=== PATIENT | male | born 1960 | race African-American/Black ===

== ENCOUNTER 2017-03-18 12:06 | Observation (INO) | payer MEDICAID, SELFPAY ==
[2017-03-18 12:17] VITALS: BMI 37.7; BMI 37.8
[2017-03-18 12:18] VITALS: BP 116/86; PULSE 74; PULSE 79; RESP 18; TEMP 36.6; O2SAT 96
--- NOTE | 2017-03-18 12:21 | PCM.HP.STD ---
Problem List (1) Opioid withdrawal Status: Acute (2) Hepatitis C Status: Chronic (3) History of heroin abuse Status: Chronic (4) Hypertension Status: Chronic History of Present Illness Date of Admission: 03/18/17 Chief Complaint: Abdominal cramps The patient is a 56 year old M past medical history is gone for hep C, heroine dependence with previous 7 previous detox with last one being in September with a [facility] relapsed a few weeks after. Patient presents with abdominal cramps as well as leg pain. He admits to daily use of IV heroine. His admission assessment was consistent with acute opioid withdrawal. Admitted to regular nursing floor for medical stabilization using Subutex. Past Medical History Past Medical History (Chronic Problems): Chronic Problems Hepatitis C (Chronic) History of heroin abuse (Chronic) Hypertension (Chronic) Allergies No Known Allergies Allergy (Verified 11/20/15 11:51) Surgical History: cholecystectomy Psychiatric History: No pertinent psych hx Smoking Status: Current every day smoker - *Family History Maternal History Items: No pertinent history Paternal History Items: No pertinent history Review of Systems Constitutional: Denies: Anorexia, Chills, Fever HEENT: Denies: Head Aches, Sinus Congestion, Sinus Drainage Cardiovascular: Denies: Chest Pain, Orthopnea, Palpitations Respiratory: Denies: Cough, Shortness of breath at rest, Shortness of breath upon exertion, Sputum production Gastrointestinal: Reports: Abdominal Pain. Denies: Hematemesis, Hematochezia Genitourinary: Denies: Dysuria, Frequency, Hematuria, Urgency Musculoskeletal: Reports: Joint Pain, Muscle pain Skin: Denies: Rash Neurological: Denies: Focal weakness, Numbness Psychiatric: Denies: Suicidal Ideations Hematologic/ Lymphatic: Denies: Easy Bruising, Easy Bleeding VTE Information - Inpt Only VTE Present on Admission: No VTE Mechan Device Prophylaxis: Knee High NEENA Hose VTE Pharm Prophylaxis ordered?: Yes Objective: GENERAL: Flat affect HEENT: Clear conjunctiva, NECK; supple, normal thyroid, CHEST: Diminished to auscultation bilaterally, HEART: Regular S1 S2, no audible murmurs ABDOMEN: soft, non-tender, normoactive bowel sounds, RECTAL: deferred EXTREMITIES: No edema, no clubbing, no cyanosis. 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 SKIN: No erythema, - Physical Exam Vital Signs Temp Pulse Resp BP Pulse Ox 97.9 F 79 18 116/86 96 03/18/17 12:18 03/18/17 12:18 03/18/17 12:18 03/18/17 12:18 03/18/17 12:18 Oxygen Delivery Method Room Air Assessment/Plan Patient is a 56-year-old gentleman with history of heroine dependence presented with acute opiate withdrawal 1. Acute opioid withdrawal and admitted to a regular nursing floor managed with a [facility] medical stabilization protocol using Subutex. She was counseled on cessation regarding his opioid dependence 2. Essential Hypertension-blood pressure controlled, home medications continued with dose adjustment as needed 3. History of hep C 4. Tobacco dependence counseled on cessation, offered nicotine patch for tobacco cravings 5. DVT prophylaxis; Lovenox
[2017-03-18] MEDS: Buprenorphine HCl 2 MG TAB.SUBL SL ×2 (12:47→22:52)
[2017-03-18] MEDS: cloNIDine HCl 0.1 MG Tablet 0.2 MG PO (12:48)
[2017-03-18] MEDS: Dicyclomine 10 MG Capsule 20 MG PO ×2 (12:48→22:52)
[2017-03-18 12:49] LABS: Absolute Lymphocyte Count 2.78 X10^3/ul (0.83-4.51); Absolute Neutrophil Count 3.4 X10^3/uL (2.0-7.7); Basophil# 0.02 X10^3/uL; Basophil% 0.3 % (0-1); Eosinophil# 0.18 X10^3/uL; Eosinophils% 2.6 % (0-5); Hematocrit 40.9 % (40-54); Hemoglobin 14.1 g/dl (13.0-16.5); Lymphocyte # 2.78 X10^3/ul (4.0); Lymphocyte % 39.9 % (19-41); Mean Corp Hgb Conc 34.5 g/gl (32-36); Mean Corpuscular Hgb 33.1 pg (27.0-32.0); Mean Platelet Vol. 9.7 fl (6.2-12.0); Monocyte# 0.57 X10^3/uL; Monocyte% 8.2 % (0-10); Neutrophil # 3.41 X10^3/uL (2.7-7.7); Neutrophil % 48.9 % (47-70); Platelet Count 210 K/mm3 (150-450); RBC Distribution Width SD 41.9 fl (35.1-43.9); Red Blood Count 4.26 M/mm3 (4.6-6.2)
[2017-03-18] MEDS: Methocarbamol 750 MG Tablet PO (12:49)
[2017-03-18] MEDS: Ondansetron ODT 4 MG Tablet PO (12:49)
[2017-03-18 12:51] LABS: POSITIVE COUNT NO; POSITIVE DIFFERENTIAL NO; POSITIVE MORPHOLOGY NO
[2017-03-18] MEDS: chlordiazePOXIDE 25 MG Capsule PO ×3 (12:53→22:52)
[2017-03-18 13:00] LABS: International Normalized Ratio 1.1; Prothrombin Time (Protime)PT. 13.3 SECONDS (11.7-14.9)
[2017-03-18 13:04] LABS: ALB/GLOB Ratio 0.6 RATIO (0.9-2.4); AST(SGOT) 38 U/L (15-37); Alanine Aminotransfer ALT/SGPT 40 U/L (12-78); Alkaline Phosphatase 141 U/L (45-117); Amylase 49 U/L (25-115); Anion Gap 7 (5-15); BUN 10 mg/dL (7-18); BUN/Creat Ratio 11.7 RATIO (10-20); Calcium,Total 8.4 mg/dL (8.5-10.1); Chloride 107 mmol/L (98-107); Creatinine, Serum 0.86 mg/dL (0.70-1.30); EST Glomerular Filtration Rate 98 mL/min (>60); Est Glom Filt Rate - Afr Amer 119 mL/min (>60); Estimated Creatinine Clearance 114.63 ml/min; Globulin 5.2 g/dL (2.3-3.5); Glucose 83 mg/dL (70-110); Lipase 69 U/L (73-393); Potassium 3.9 mmol/L (3.5-5.1); Protein, Total 8.2 g/dL (6.4-8.2); Sodium Level 137 mmol/L (136-145)
[2017-03-18 15:39] VITALS: BP 126/72; PULSE 61; RESP 18; TEMP 36.6
[2017-03-18 15:49] LABS: Bacteria 0 SEEN /hpf (None Seen); Mucous, Urine 0 SEEN /hpf (<or=2+); Red Blood Cells-Urine 0 SEEN /hpf (0-5); White Blood Cells 0 SEEN /hpf (0-5)
[2017-03-18 15:58] LABS: Color, Urine Yellow (Yellow); Glucose, Dipstick Normal (Normal); Ketone-Dipstick Negative (Negative); Leukocyte Esterase-Dipstick 25 /ul (Negative); Nitrite-Dipstick Negative (Negative); Occult Blood-Urine Negative /ul (Negative); Protein-Dipstick Negative (Negative); Specific Gravity, Urine 1.015 (1.002-1.030); Urine Bilirubin Dipstick Negative (Negative); Urine Clarity Clear (Clear); Urine Urobilinogen 4 mg/dl (Normal)
[2017-03-18 16:05] LABS: Amphetamine Urine VISTA NEGATIVE (<1000 ng/mL); Barbiturate Urine VISTA NEGATIVE (< 200 ng/mL); Benzodiazepine Urine VISTA NEGATIVE (< 200 ng/mL); Cocaine Urine VISTA POSITIVE (< 300 ng/mL); Ecstacy Urine VISTA NEGATIVE (< 500 ng/mL); Methadone Urine VISTA NEGATIVE (< 300 ng/mL); PCP Urine VISTA NEGATIVE (< 25 ng/mL); THC Urine VISTA NEGATIVE (< 50 ng/mL); Vista UDS pH Range 6
[2017-03-18 16:07] LABS: Squamous Epithelial Cells - UA 0-5 SEEN /hpf (0-5)
[2017-03-18] MEDS: cloNIDine HCl 0.1 MG Tablet PO (22:52)
[2017-03-18] MEDS: traZODone 50 MG Tablet PO (22:56)
[2017-03-18 23:08] VITALS: BP 120/72; PULSE 62; RESP 18; TEMP 36.5
[2017-03-19 02:17] VITALS: BP 132/69; PULSE 55; RESP 20; TEMP 36.6
[2017-03-19] MEDS: chlordiazePOXIDE 25 MG Capsule PO ×4 (02:17→18:23)
[2017-03-19] MEDS: QUEtiapine 25 MG Tablet PO ×2 (02:25→22:12)
[2017-03-19] MEDS: Buprenorphine HCl 2 MG TAB.SUBL SL ×3 (07:08→22:12)
[2017-03-19 07:10] VITALS: BP 125/79; PULSE 64; RESP 16; TEMP 36.1
--- NOTE | 2017-03-19 08:31 | PN_ITS ---
Subjective: Patient was admitted with acute opioid withdrawal admitted to regular nursing floor being with Subutex medical stabilization protocol Objective: GENERAL: Flat affect HEENT: Clear conjunctiva, NECK; supple, normal thyroid, CHEST: Diminished to auscultation bilaterally, HEART: Regular S1 S2, no audible murmurs ABDOMEN: soft, non-tender, normoactive bowel sounds, RECTAL: deferred EXTREMITIES: No edema, no clubbing, no cyanosis. 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 SKIN: No erythema, Vitals/I&O's: Vital Signs Temp Pulse Resp BP Pulse Ox 96.9 F 64 16 125/79 96 03/19/17 07:10 03/19/17 07:10 03/19/17 07:10 03/19/17 07:10 03/18/17 12:18 Oxygen Delivery Method Room Air Weight: 137 kg Body Mass Index (BMI) 37.7 Intake and Output for Last 24 Hours 03/17/17 03/18/17 03/19/17 23:59 23:59 23:59 Intake Total 360 840 Output Total 150 Balance 210 840 Laboratory Results 03/18/17 12:35: WBC 7.0, RBC 4.26 L, Hgb 14.1, Hct 40.9, MCV 96.0 H, MCH 33.1 H , MCHC 34.5, RDW 12.0, RDW Differential 41.9, Plt Count 210, MPV 9.7, Immature Gran % (Auto) 0.100, Neut % (Auto) 48.9, Lymph % (Auto) 39.9, [place]ton % (Auto) 8.2 , Eos % (Auto) 2.6, Baso % (Auto) 0.3, Absolute Neuts (auto) 3.4, Absolute Lymphs (auto) 2.78, Total Counted Not Reportable 03/18/17 12:35: PT 13.3, INR 1.1 03/18/17 12:35: Sodium 137, Potassium 3.9, Chloride 107, Carbon Dioxide 23.0, Anion Gap 7, BUN 10, Creatinine 0.86, Estim Creat Clear Calc 114.63, Est GFR ( MDRD) Af Amer 119, Est GFR (MDRD) Non-Af 98, BUN/Creatinine Ratio 11.7, Glucose 83, Calcium 8.4 L, Total Bilirubin 0.60, AST 38 H, ALT 40, Alkaline Phosphatase 141 H, Total Protein 8.2, Albumin 3.0 L, Globulin 5.2 H, Albumin/Globulin Ratio 0.6 L, Amylase 49, Lipase 69 L 03/18/17 12:35: Ethyl Alcohol 4.0 03/18/17 15:40: Urine Opiates Screen POSITIVE H, Urine Methadone Screen NEGATIVE , Ur Barbiturates Screen NEGATIVE, Ur Phencyclidine Scrn NEGATIVE, Ur Amphetamines Screen NEGATIVE, U Methamphetamin-MDMA NEGATIVE, U Benzodiazepines Scrn NEGATIVE, Urine Cocaine Screen POSITIVE H, U Cannabinoids Screen NEGATIVE, Ur Drug Screen Comment 03/18/17 15:40: Urine Color Yellow, Urine Clarity Clear, Urine pH 6.0, Ur Specific [place] 1.015, Urine Protein Negative, Urine Glucose (UA) Normal, Urine Ketones Negative, Urine Occult Blood Negative, Urine Nitrite Negative, Urine Bilirubin Negative, Urine Urobilinogen 4 H, Ur Leukocyte Esterase 25 H, Urine RBC 0 SEEN, Urine WBC 0 SEEN, Ur Squamous Epith Cells 0-5 SEEN, Urine Bacteria 0 SEEN, Urine Mucus 0 SEEN Current Medications Acetaminophen (Tylenol) 650 mg PO Q4H PRN PRN PRN Reason: Temp>99.1F Al Hydroxide/Mg Hydroxide (Mylanta Ii) 30 ml PO Q6H PRN PRN PRN Reason: dyspesia Bisacodyl (Dulcolax) 10 mg RECTAL DAILY PRN PRN Reason: Constipation Buprenorphine HCl (Buprenorphine Hcl) 4 mg SL Q8H VALENTIN PRN Reason: Taper Stop: 03/21/17 17:59 Last Admin: 03/19/17 07:08 Dose: 4 mg Carbidopa/Levodopa (Sinemet) 1 tablet PO Q8H PRN PRN PRN Reason: RESTLESSNESS Chlordiazepoxide (Librium) 25 mg PO Q4 VALENTIN Stop: 03/19/17 10:01 Last Admin: 03/19/17 07:09 Dose: 25 mg Chlordiazepoxide (Librium) 25 mg PO Q6H PRN PRN PRN Reason: Mod-Sev Anxiety (score 2-3/3) Clonidine (Catapres) 0.1 mg PO Q2H PRN PRN Reason: Hot/Cold Sweats or Anxiety Last Admin: 03/18/17 22:52 Dose: 0.1 mg Dicyclomine HCl (Bentyl) 20 mg PO Q6H PRN PRN PRN Reason: Abdomnial Discomfort Last Admin: 03/18/17 22:52 Dose: 20 mg Enoxaparin Sodium (Lovenox) 40 mg SC DAILY@1000 [facility] Folic Acid (Folic Acid) 1 mg PO DAILY@0800 [facility] Hydroxyzine Pamoate (Vistaril) 50 mg PO Q6H PRN PRN PRN Reason: Mild Anxiety (score 1/3) Ibuprofen (Motrin) 800 mg PO Q8H PRN PRN PRN Reason: Mild-Moderate Pain (1-5/10) Loperamide HCl (Imodium) 2 - 4 mg PO UD PRN PRN Reason: LOOSE STOOLS Methocarbamol (Methocarbamol) 750 mg PO 4X/DAY PRN PRN Reason: Muscle Aches Last Admin: 03/18/17 12:49 Dose: 750 mg Multivitamins/Minerals (Multivitamin With Minerals) [facility] Nicotine (Nicoderm Cq (Pbkc)) 21 mg TRANSDERM. DAILY [facility] Nutritional Formula (Lactose Free) (Ensure Enlive) 120 ml PO 4X/DAY [facility] Last Admin: 03/18/17 22:56 Dose: 120 ml Ondansetron HCl (Zofran Odt) 4 mg PO Q6H PRN PRN PRN Reason: NAUSEA Last Admin: 03/18/17 12:49 Dose: 4 mg Quetiapine Fumarate (Seroquel) 25 mg PO Q6H PRN PRN PRN Reason: Moderate Anxiety (score 2/3) Last Admin: 03/19/17 02:25 Dose: 25 mg Senna (Senokot) 1 tablet PO QHS PRN PRN Reason: Constipation Thiamine HCl (Vitamin B1) 100 mg PO DAILYCM [facility] Trazodone HCl (Desyrel) 50 mg PO QHS [facility] Last Admin: 03/18/17 22:56 Dose: 50 mg Assessment/Plan Patient is a 56-year-old gentleman with history of heroine dependence presented with acute opiate withdrawal 1. Acute opioid withdrawal and admitted to a regular nursing floor managed with a [facility] medical stabilization protocol using Subutex. She was counseled on cessation regarding his opioid dependence 2. Essential Hypertension-blood pressure controlled, home medications continued with dose adjustment as needed 3. History of hep C 4. Tobacco dependence counseled on cessation, offered nicotine patch for tobacco cravings 5. DVT prophylaxis; Lovenox
[2017-03-19] MEDS: Multivitamins,Ther W-Minerals Tablet 1 TABLET PO (10:13)
[2017-03-19] MEDS: Folic Acid 1 MG Tablet PO (10:14)
[2017-03-19] MEDS: Thiamine Hydrochloride 100 MG Tablet PO (10:14)
[2017-03-19 11:59] VITALS: BP 118/75; PULSE 56; RESP 16; TEMP 36.8
[2017-03-19 18:00] VITALS: BP 148/74; PULSE 92; RESP 20; TEMP 37
[2017-03-19] MEDS: Ondansetron ODT 4 MG Tablet PO (18:22)
[2017-03-19] MEDS: cloNIDine HCl 0.1 MG Tablet PO (20:41)
[2017-03-19] MEDS: Dicyclomine 10 MG Capsule 20 MG PO (20:41)
[2017-03-19] MEDS: Carbidopa/Levodopa 25/100 Tablet PO (20:41)
[2017-03-19 22:00] VITALS: BP 163/87; PULSE 67; RESP 20; TEMP 36.9
[2017-03-19] MEDS: traZODone 50 MG Tablet PO (22:12)
[2017-03-20 06:00] VITALS: BP 124/64; PULSE 61; RESP 18; TEMP 36.7
[2017-03-20] MEDS: Buprenorphine HCl 2 MG TAB.SUBL SL ×2 (06:06→18:11)
--- NOTE | 2017-03-20 09:36 | PN_ITS ---
Subjective: Patient seen had a relatively uneventful night. Objective: GENERAL: Flat affect HEENT: Clear conjunctiva, NECK; supple, normal thyroid, CHEST: Diminished to auscultation bilaterally, HEART: Regular S1 S2, no audible murmurs ABDOMEN: soft, non-tender, normoactive bowel sounds, RECTAL: deferred EXTREMITIES: No edema, no clubbing, no cyanosis. 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 SKIN: No erythema, Vitals/I&O's: Vital Signs Temp Pulse Resp BP Pulse Ox 98.0 F 61 18 124/64 96 03/20/17 06:00 03/20/17 06:00 03/20/17 06:00 03/20/17 06:00 03/18/17 12:18 Oxygen Delivery Method Room Air Weight: 137 kg Body Mass Index (BMI) 37.7 Intake and Output for Last 24 Hours 03/18/17 03/19/17 03/20/17 23:59 23:59 23:59 Intake Total 360 1440 Output Total 150 Balance 210 1440 Current Medications Acetaminophen (Tylenol) 650 mg PO Q4H PRN PRN PRN Reason: Temp>99.1F Al Hydroxide/Mg Hydroxide (Mylanta Ii) 30 ml PO Q6H PRN PRN PRN Reason: dyspesia Bisacodyl (Dulcolax) 10 mg RECTAL DAILY PRN PRN Reason: Constipation Buprenorphine HCl (Buprenorphine Hcl) 2 mg SL Q12H VALENTIN PRN Reason: Taper Stop: 03/21/17 17:59 Last Admin: 03/20/17 06:06 Dose: 2 mg Carbidopa/Levodopa (Sinemet) 1 tablet PO Q8H PRN PRN PRN Reason: RESTLESSNESS Last Admin: 03/19/17 20:41 Dose: 1 tablet Chlordiazepoxide (Librium) 25 mg PO Q6H PRN PRN PRN Reason: Mod-Sev Anxiety (score 2-3/3) Last Admin: 03/19/17 18:23 Dose: 25 mg Clonidine (Catapres) 0.1 mg PO Q2H PRN PRN Reason: Hot/Cold Sweats or Anxiety Last Admin: 03/19/17 20:41 Dose: 0.1 mg Dicyclomine HCl (Bentyl) 20 mg PO Q6H PRN PRN PRN Reason: Abdomnial Discomfort Last Admin: 03/19/17 20:41 Dose: 20 mg Enoxaparin Sodium (Lovenox) 40 mg SC DAILY@1000 [facility] Last Admin: 03/19/17 10:12 Dose: Not Given Folic Acid (Folic Acid) 1 mg PO DAILY@0800 [facility] Last Admin: 03/19/17 10:14 Dose: 1 mg Hydroxyzine Pamoate (Vistaril) 50 mg PO Q6H PRN PRN PRN Reason: Mild Anxiety (score 1/3) Last Admin: 03/19/17 20:41 Dose: 50 mg Ibuprofen (Motrin) 800 mg PO Q8H PRN PRN PRN Reason: Mild-Moderate Pain (1-5/10) Loperamide HCl (Imodium) 2 - 4 mg PO UD PRN PRN Reason: LOOSE STOOLS Methocarbamol (Methocarbamol) 750 mg PO 4X/DAY PRN PRN Reason: Muscle Aches Last Admin: 03/18/17 12:49 Dose: 750 mg Multivitamins/Minerals ([facility]ivitamin With Minerals) [facility] Last Admin: 03/19/17 10:13 Dose: 1 tablet Nicotine (Nicoderm Cq (Pbkc)) 21 mg TRANSDERM. DAILY [facility] Last Admin: 03/19/17 10:13 Dose: 21 mg Nutritional Formula (Lactose Free) (Ensure Enlive) 120 ml PO 4X/DAY [facility] Last Admin: 03/19/17 22:12 Dose: 120 ml Ondansetron HCl (Zofran Odt) 4 mg PO Q6H PRN PRN PRN Reason: NAUSEA Last Admin: 03/19/17 18:22 Dose: 4 mg Quetiapine Fumarate (Seroquel) 25 mg PO Q6H PRN PRN PRN Reason: Moderate Anxiety (score 2/3) Last Admin: 03/19/17 22:12 Dose: 25 mg Senna (Senokot) 1 tablet PO QHS PRN PRN Reason: Constipation Thiamine HCl ([facility]itamin B[facility]) [facility] Last Admin: 03/19/17 10:14 Dose: 100 mg Trazodone HCl (Desyrel) 50 mg PO QHS [facility] Last Admin: 03/19/17 22:12 Dose: 50 mg Assessment/Plan Patient is a 56-year-old gentleman with history of heroine dependence presented with acute opiate withdrawal 1. Acute opioid withdrawal and admitted to a regular nursing floor managed with a [facility] medical stabilization protocol using Subutex. She was counseled on cessation regarding his opioid dependence 2. Essential Hypertension-blood pressure controlled, home medications continued with dose adjustment as needed 3. History of hep C 4. Tobacco dependence counseled on cessation, offered nicotine patch for tobacco cravings 5. DVT prophylaxis; Lovenox
[2017-03-20 10:45] VITALS: BP 137/83; PULSE 64; RESP 16; TEMP 36.6
[2017-03-20] MEDS: Thiamine Hydrochloride 100 MG Tablet PO (10:50)
[2017-03-20] MEDS: QUEtiapine 25 MG Tablet PO ×2 (10:50→18:15)
[2017-03-20] MEDS: cloNIDine HCl 0.1 MG Tablet PO ×3 (10:50→21:25)
[2017-03-20] MEDS: Folic Acid 1 MG Tablet PO (10:51)
[2017-03-20] MEDS: Multivitamins,Ther W-Minerals Tablet 1 TABLET PO (10:51)
[2017-03-20 15:15] VITALS: BP 152/88; PULSE 70; RESP 18; TEMP 36.7
[2017-03-20] MEDS: chlordiazePOXIDE 25 MG Capsule PO ×2 (15:19→21:25)
[2017-03-20] MEDS: Carbidopa/Levodopa 25/100 Tablet PO (15:19)
[2017-03-20] MEDS: Ibuprofen 400 MG Tablet 800 MG PO (18:15)
[2017-03-20] MEDS: Ondansetron ODT 4 MG Tablet PO (18:15)
[2017-03-20 18:18] VITALS: BP 138/80; PULSE 74; RESP 18; TEMP 36.5
[2017-03-20 21:14] VITALS: BP 158/92; PULSE 71; RESP 100; TEMP 36.8
[2017-03-20] MEDS: traZODone 50 MG Tablet PO (21:25)
[2017-03-20] MEDS: Methocarbamol 750 MG Tablet PO (21:25)
[2017-03-21] MEDS: Buprenorphine HCl 2 MG TAB.SUBL SL (05:21)
[2017-03-21 05:22] VITALS: BP 147/93; PULSE 59; RESP 16; TEMP 36.4
--- NOTE | 2017-03-21 08:28 | PCM.DC ---
You will use the following diet at home:: No restrictions Discharge Activity: May not drive while taking narcotic pain medications. Allergies/Adverse Reactions: Allergies No Known Allergies Allergy (Verified 11/20/15 11:51) Medications to take at Discharge HydrOXYzine ALAINA [Vistaril] 50 mg PO Q6H PRN PRN #30 capsule 03/21/17 The following prescriptions were given: HydrOXYzine ALAINA [Vistaril] 50 mg PO Q6H PRN PRN #30 capsule PRN Reason: Mild Anxiety (score 1/3) Primary Care Physician: Devin Orozco III, MD [Primary Care Provider] - Please follow up with your Primary Care Physician in: in 1-2 weeks Proposed Discharge Date: 03/21/17
--- NOTE | 2017-03-21 08:34 | PCM.DC.SUM ---
Discharge Date and Diagnosis Date of Admission: 03/18/17 Date of Discharge: 03/21/17 - Primary Discharge Diagnosis Acute opioid withdrawal - Secondary Discharge Diagnosis Chronic Problems Hepatitis C (Chronic) History of heroin abuse (Chronic) Hypertension (Chronic) Hospital Course and Treatment Operations: None Summary of Care Provided: Patient is a 56-year-old gentleman with history of heroine dependence presented with acute opiate withdrawal 1. Acute opioid withdrawal and admitted to a regular nursing floor managed with a [facility] medical stabilization protocol using Subutex. He was counseled on cessation regarding his opioid dependence the patient was discharged on hydroxyzine 50 mg as needed for anxiety given a prescription for 30 tablets 2. Essential Hypertension-blood pressure controlled, home medications continued with dose adjustment as needed 3. History of hep C 4. Tobacco dependence counseled on cessation, offered nicotine patch for tobacco cravings 5. DVT prophylaxis; Lovenox Discharge Diet: No Restrictions Discharge Activity: May not drive while taking narcotic pain medications. Home Medications: Medications to take at Discharge HydrOXYzine ALAINA [Vistaril] 50 mg PO Q6H PRN PRN #30 capsule 03/21/17 Following Prescrptions Were Given to Patient: HydrOXYzine ALAINA [Vistaril] 50 mg PO Q6H PRN PRN #30 capsule PRN Reason: Mild Anxiety (score 1/3) Primary Care Physician: Devin Orozco III, MD [Primary Care Provider] - Please follow up with your Primary Care Physician in: in 1-2 weeks Disposition: Home Minutes spent on discharge:: 35 Patient Condition:: Stable Meaningful Use Info Meaningful Use Diagnoses (Choose all that apply): None applicable
[2017-03-21 08:55] VITALS: BP 145/87; PULSE 65; RESP 16; TEMP 36.5
[2017-03-21] MEDS: Folic Acid 1 MG Tablet PO (08:59)
[2017-03-21] MEDS: Multivitamins,Ther W-Minerals Tablet 1 TABLET PO (08:59)
[2017-03-21] MEDS: Thiamine Hydrochloride 100 MG Tablet PO (08:59)
== END 2017-03-21 10:11 | disposition home or self-care (01) | DRG 773 ==
LOC: MS2 08-14 15:06
PROVIDERS: Admitting Provider Internal Medicine; Family Provider Family Medicine; PCP Family Medicine; Visit Provider Internal Medicine
DX: F11.23 Opioid dependence with withdrawal (principal); I10 Essential (primary) hypertension; F17.200 Nicotine dependence, unspecified, uncomplicated; B18.2 Chronic viral hepatitis C
CPT/HCPCS: 80053; 80307; 80320; 81001; 82150; 83690; 85025; 85610; 97802; 99218; 99406; G0378; G0379; G0480

== ENCOUNTER 2018-02-08 06:51 | Inpatient (IN) | payer MEDICAID, SELFPAY ==
[2018-02-08] VITALS (12 sets, daily range): BP systolic 102–170; BP diastolic 55–97; PULSE 62–107; RESP 14–28; TEMP 36.9–39.2; O2SAT 95–98; BMI 37.5
--- NOTE | 2018-02-08 07:30 | CT_ITS ---
STUDY: CT ABDOMEN AND PELVIS WITHOUT CONTRAST REASON FOR EXAM: Male, 57 years old. Left abdominal pain. Fever RADIATION DOSAGE (If Supplied By Facility): CTDIvol = ( 23.58 ) mGy, DLP = ( 1355.13 ) mGycm TECHNIQUE: Transaxial images were obtained from the dome of the diaphragm to the symphysis pubis without oral contrast, and without intravenous contrast. Sagittal and coronal images were reconstructed. Individualized dose optimization techniques were used for this CT. COMPARISON: July 09, 2017. FINDINGS: The visualized lung bases are unremarkable. The visualized portions of the heart are within normal limits. There is hepatomegaly with diffuse hepatic enlargement. There are surgical clips in the gallbladder fossa consistent with a prior cholecystectomy. There is mild splenomegaly. Normal pancreas. Normal bilateral adrenal glands. There is 2.0 cm cyst of the right kidney. Normal left kidney. No stones or hydronephrosis. Normal visualized stomach. Normal small intestine. Normal colon. There is moderate stool. The appendix is visualized and appears normal. There is atherosclerotic calcification of the abdominal aorta, without a demonstrated aneurysm. Normal inferior vena cava. Normal retroperitoneum. Normal urinary bladder. There is no free fluid in the abdomen or pelvis. There is a small umbilical hernia containing fat. Normal osseous structures. CT/Abdomen/Pelvis without Cont IMPRESSION: Hepatosplenomegaly. Prior cholecystectomy. No acute intra-abdominal abnormality. Electronically Signed: Igor Welch MD at 8:18 EDT , Service support ,
--- NOTE | 2018-02-08 07:30 | EKG12_ITS ---
Test Reason : SOB Blood Pressure : / mmHG Vent. Rate : 101 BPM Atrial Rate : 101 BPM P-R Int : 120 ms QRS Dur : 070 ms QT Int : 330 ms P-R-T Axes : 056 036 003 degrees QTc Int : 427 ms Sinus tachycardia with Premature atrial complexes in a pattern of bigeminy Nonspecific ST and T wave abnormality Abnormal ECG Confirmed by KAYDEN PAGAN, AVINASH ([id number]), photograph editor JOSHUA PIÑA ([id number]) on 02/11/2018 10:34:58 AM Referred By: Confirmed By:AVINASH MONIQUE MD
[2018-02-08] MEDS: morphine 8 MG/ML Syringe IV ×2 (07:36→10:44)
[2018-02-08] MEDS: 0.9% Normal Saline 1,000 ML 1000 ML IV (07:36)
[2018-02-08] MEDS: Ondansetron 4 MG/2 ML Vial IV (07:37)
[2018-02-08 07:40] LABS: Absolute Lymphocyte Count 2.42 X10^3/ul (0.83-4.51); Absolute Neutrophil Count 13.4 X10^3/uL (2.0-7.7); Basophil# 0.02 X10^3/uL; Basophil% 0.1 % (0-1); Eosinophil# 0.06 X10^3/uL; Eosinophils% 0.4 % (0-5); Hemoglobin 14.7 g/dl (13.0-16.5); Lymphocyte # 2.42 X10^3/ul (4.0); Lymphocyte % 14.3 % (19-41); Mean Corp Hgb Conc 34.2 g/gl (32-36); Mean Corpuscular Volume 96.6 fL (80-94); Mean Platelet Vol. 10.1 fl (6.2-12.0); Monocyte# 0.98 X10^3/uL; Monocyte% 5.8 % (0-10); Neutrophil # 13.43 X10^3/uL (2.7-7.7); Neutrophil % 79.2 % (47-70); POSITIVE COUNT NO; POSITIVE DIFFERENTIAL NO; POSITIVE MORPHOLOGY NO; Platelet Count 231 K/mm3 (150-450); RBC Distribution Width CV 12.1 % (11.6-14.6); RBC Distribution Width SD 43.1 fl (35.1-43.9); Red Blood Count 4.45 M/mm3 (4.6-6.2)
--- NOTE | 2018-02-08 07:41 | ED.DCSUM_ITS ---
- ER Visit Summary Date of Service: 02/08/18 Chief Complaint: [] Sudden onset left sided abdominal pain 1 AM today History of Present Illness: The patient is a 57 M [] history of abdominal pain pancreatitis history of IV drug abuse, history of left lower extremity chronic skin lesion wound, reports at 1 AM this morning had sudden onset of severe pain to the left side of the abdomen would not go away he was brought in for evaluation he is noted to have a temperature here of 102, he has had nausea no vomiting indicates no bowel bladder habits. No cough no chest pain or shortness of breath he is holding his left middle quadrant complaining of pain indicates he has a history of chronic abdominal pain Physical Examination: [] He is holding his left side of his abdomen he is awake and alert his vital signs otherwise within normal range head neck unremarkable the lungs are diminished heart tones are distant the abdomen is soft there is a vague pain to the left side of the abdomen there is no rebound guarding organomegaly upper lower extremities unremarkable except the left leg there is a medial skin lesion that is appears chronic and oozing some blood-tinged fluid he indicates this lesion is related to chronic skin breakdown he has had for years it is not different anyway he does not believe is contributing to his fever or any of his current complaints Test Results: [] Emergency Department Course and Treatment: [] Given all the above screening labs pain management CT The patient's screening labs reveal a white count of 17,000 elevated creatinine lactate is unremarkable calcium is low at 6.1, CT abdomen shows nothing acute he was treated with Tylenol for the fever UA is pending culture has been ordered , there is no obvious source for the white count of the fever except the left leg wound that is chronic [id number] that was cultured we did start the patient on IV Zosyn and vancomycin, and given the constellation deficit symptoms and vital signs have asked the hospitalist to see him for admission, they will check the UA results and other studies Treatment Plan: [] Disposition: [] Stable, admit Impression: [] Abdominal pain left-sided etiology unclear, leukocytosis and fever, left leg wound, history of pancreatitis, history of prior drug abuse This note was generated with [employer] software. It may contain incorrect words, spelling, and punctuation that were not noted in review of the chart prior to signing ED Disposition - Plan for ED Patient: Chief Complaint: Shortness of Breath Referrals: Devin Orozco III, MD [Primary Care Provider] -
--- NOTE | 2018-02-08 07:50 | RAD_ITS ---
STUDY: X-RAY CHEST REASON FOR EXAM: Male, 57 years old. Shortness of breath TECHNIQUE: Single AP portable view of the chest. COMPARISON: July 10, 2017 FINDINGS: The lungs are clear and expanded. There is no demonstrated pleural abnormality. Normal size heart. Normal mediastinum and leandra. Normal visualized pulmonary arteries. Normal visualized aortic arch and descending thoracic aorta. Normal visualized thoracic spine. Normal visualized ribs, clavicles, and shoulders. There is no demonstrated abnormality of the visualized soft tissue structures of the upper abdomen. RAD/Chest 1 View IMPRESSION: Normal x-ray examination of the chest. Electronically Signed: Igor Welch MD at 8:20 EDT , Service support ,
[2018-02-08 08:46] LABS: Anion Gap 10 (5-15); BUN 9 mg/dL (7-18); BUN/Creat Ratio 13.5 RATIO (10-20); Calcium,Total 6.1 mg/dL (8.5-10.1); Chloride 114 mmol/L (98-107); Creatinine, Serum 0.67 mg/dL (0.70-1.30); EST Glomerular Filtration Rate 130 mL/min (>60); Est Glom Filt Rate - Afr Amer 157 mL/min (>60); Estimated Creatinine Clearance 145.39 ml/min; Glucose 92 mg/dL (74-106); Lipase 45 U/L (73-393); Potassium 3.5 mmol/L (3.5-5.1); Sodium Level 141 mmol/L (136-145)
--- NOTE | 2018-02-08 08:49 | ED.RN ---
calcium 6.[address] lab[address] dr gascaed aware
[2018-02-08 08:59] LABS: Lactic Acid 1.6 mmol/L (0.4-2.0)
[2018-02-08] MEDS: Acetaminophen 500 MG Tablet 1000 MG PO (09:50)
[2018-02-08 09:54] LABS: Bacteria 0 SEEN /hpf (None Seen); Mucous, Urine 0 SEEN /hpf (<or=2+); Squamous Epithelial Cells - UA 0 SEEN /hpf (0-5)
[2018-02-08 09:58] LABS: Color, Urine Yellow (Yellow); Glucose, Dipstick Normal (Normal); Ketone-Dipstick Negative (Negative); Leukocyte Esterase-Dipstick 25 /ul (Negative); Nitrite-Dipstick Negative (Negative); Occult Blood-Urine 250 /ul (Negative); Protein-Dipstick 15 mg/dl (Negative); Specific Gravity, Urine 1.015 (1.002-1.030); Urine Clarity Clear (Clear); Urine Urobilinogen 8 mg/dl (Normal)
[2018-02-08 10:04] LABS: Urine Bilirubin Dipstick 1 mg/dL (Negative)
[2018-02-08 10:08] LABS: Red Blood Cells-Urine 5-10 SEEN /hpf (0-5); White Blood Cells 0-5 SEEN /hpf (0-5)
--- NOTE | 2018-02-08 10:36 | HP.PCM_ITS ---
Problem List (1) Sepsis Status: Acute Qualifiers: Sepsis type: sepsis due to unspecified organism Qualified Code(s): A41.9 - Sepsis, unspecified organism (2) Abdominal pain Status: Chronic Qualifiers: Abdominal location: unspecified location Qualified Code(s): R10.9 - Unspecified abdominal pain (3) Hypertension Status: Chronic Qualifiers: Hypertension type: essential hypertension Qualified Code(s): I10 - Essential (primary) hypertension (4) Hepatitis C Status: Chronic (5) History of heroin abuse Status: Chronic History of Present Illness Date of Admission: 02/08/18 Chief Complaint: abdominal pain 57-year-old gentleman with past medical history of heroin abuse, hepatitis C, hypertension, chronic abdominal pain. He presented to ED with left-sided abdominal pain starting at 1 AM, clutching his left side. In the ED, vital signs were pertinent for fever 102.6, heart rate 107, BP 154/97, respirations 28 , 97% room air. Laboratories were pertinent for leukocytosis white count 17 K, left shift, hemoglobin 14.7, platelet 231. Comprehensive chemistries were pertinent for non-anion gap acidosis, with sodium 141, potassium 3.5, chloride 114, CO2 17, BUN 9, creatinine 0.67. Random glucose was 92. Lactic acid was 1.6, troponin negative, lipase negative. Calcium was pertinent at 6.1 corrected 7.7 for albumin 2.3. Chest x-ray was unrevealing. Abdominal pelvic CT scan contrast was unrevealing. Urinalysis revealed trace protein, trace blood, trace bili, urobilinogen, and leukoesterase. No significant pyuria was seen. He received Tylenol 1 g, morphine 8 mg IV, Zofran 4 mg IV, saline 1.5 L and empiric vancomycin and Zosyn. He was noted to have left lower extremity chronic ulceration. Culture and wound culture of left lower extremity wound was ordered by ED. I spoke with the ED and requested blood culture. The patient is seen and examined. The patient denies use of heroin recently. He states his last use was about a month ago. The patient states his abdominal pain is resolved. The patient is noted to have a left calf large malodorous ulceration. He reports this is been present for some time but is vague on specifics. He mentions he may have allergy to straw which caused the ulcer. [] Past Medical History Past Medical History (Chronic Problems): Chronic Problems Abdominal pain (Chronic) Hypertension (Chronic) Hepatitis C (Chronic) History of heroin abuse (Chronic) Allergies No Known Allergies Allergy (Verified 02/08/18 06:57) Home Medications: Ambulatory Orders Medication Instructions Recorded NK [NK] 02/08/18 Surgical History: cholecystectomy Psychiatric History: No pertinent psych hx Smoking Status: Current every day smoker - *Family History Maternal History Items: Cancer - Breast cancer Paternal History Items: Unknown Review of Systems Constitutional: Reports: Fever Gastrointestinal: Reports: Abdominal Pain - resolved with ED treatment Skin: Reports: Wounds - L calf VTE Information - Inpt Only VTE Present on Admission: No VTE Mechan Device Prophylaxis: SCD's - to R leg only VTE Pharm Prophylaxis ordered?: Yes Patient Problems: Active and Suspected Problems Sepsis (Acute) Subjective: The patient is resting comfortably in the bed. He reports abdominal pain resolved Objective: Nontoxic-appearing, no acute distress - Physical Exam General: Alert, Oriented x3, Cooperative HEENT: - - Fair dentition Oral: Moist Mucosa Neck: No JVD Lungs: Clear to auscultation, No rhonchi, No wheeze Cardiovascular: Regular rate, Regular Rhythm, Normal S1, Normal S2, No murmurs Abdomen: Bowel Sounds Present, Soft, Non Tender, Non-Distended, No Hepato- splenomegaly - l calf -->malodorous large serpiginous irregular ulceration, about 8 by 4 cm, to fat layer, with black eschar and palpable fullness superior edge, tender. Small satellite ulcerations superiorly and about edges of wound, Obese Psych/Mental Status: Normal Affect, Appropriate Vital Signs Temp Pulse Resp BP Pulse Ox 102.6 F H 91 14 155/90 H 98 02/08/18 06:52 02/08/18 09:54 02/08/18 09:54 02/08/18 09:54 02/08/18 09:54 Oxygen Flow Rate (L/min) 2 Oxygen Delivery Method Nasal Cannula Weight: 299 lb 13.259 oz Body Mass Index (BMI) 37.5 Laboratory Tests Past 24 Hrs 02/08/18 02/08/18 02/08/18 07:15 08:22 08:25 WBC 17.0 H RBC 4.45 L Hgb 14.7 Hct 43.0 MCV 96.6 H MCH 33.0 H MCHC 34.2 RDW 12.1 RDW Differential 43.1 Plt Count 231 MPV 10.1 Immature Gran % (Auto) 0.200 Neut % (Auto) 79.2 H Lymph % (Auto) 14.3 L [place] % (Auto) 5.8 Eos % (Auto) 0.4 Baso % (Auto) 0.1 Absolute Neuts (auto) 13.4 H Absolute Lymphs (auto) 2.42 Total Counted Not Reportable Sodium 141 Potassium 3.5 Chloride 114 H Carbon Dioxide 17.0 L Anion Gap 10 BUN 9 Creatinine 0.67 L Estim Creat Clear Calc 145.39 Est GFR (MDRD) Af Amer 157 Est GFR (MDRD) Non-Af 130 BUN/Creatinine Ratio 13.5 Glucose 92 Lactic Acid 1.6 Calcium 6.1 L* Troponin I < 0.015 Lipase 45 L Urine Color Urine Clarity Urine pH Ur Specific [place] Urine Protein Urine Glucose (UA) Urine Ketones Urine Occult Blood Urine Nitrite Urine Bilirubin Urine Urobilinogen Ur Leukocyte Esterase Urine RBC Urine WBC Ur Squamous Epith Cells Urine Bacteria Urine Mucus 02/08/18 09:50 WBC RBC Hgb Hct MCV MCH MCHC RDW RDW Differential Plt Count MPV Immature Gran % (Auto) Neut % (Auto) Lymph % (Auto) [place] % (Auto) Eos % (Auto) Baso % (Auto) Absolute Neuts (auto) Absolute Lymphs (auto) Total Counted Sodium Potassium Chloride Carbon Dioxide Anion Gap BUN Creatinine Estim Creat Clear Calc Est GFR (MDRD) Af Amer Est GFR (MDRD) Non-Af BUN/Creatinine Ratio Glucose Lactic Acid Calcium Troponin I Lipase Urine Color Yellow Urine Clarity Clear Urine pH 6.0 Ur Specific [place] 1.015 Urine Protein 15 H Urine Glucose (UA) Normal Urine Ketones Negative Urine Occult Blood 250 H Urine Nitrite Negative Urine Bilirubin 1 H Urine Urobilinogen 8 H Ur Leukocyte Esterase 25 H Urine RBC 5-10 SEEN Urine WBC 0-5 SEEN Ur Squamous Epith Cells 0 SEEN Urine Bacteria 0 SEEN Urine Mucus 0 SEEN Assessment/Plan All Active Problems Sepsis (Acute) Upper abdominal pain (Acute) Opioid withdrawal (Acute) 57-year-old gentleman with past medical history of heroin abuse, hepatitis C, hypertension, chronic abdominal pain who presented to ED with left-sided abdominal pain starting at 1 AM, clutching his left side. In the ED, vital signs are pertinent for fever 102.6, heart rate 107, BP 154/97, respirations 28 , 97% room air. Laboratories are pertinent for leukocytosis white count 17 K, left shift, hemoglobin 14.7, platelet 231. Comprehensive chemistries pertinent for non-anion gap acidosis, with sodium 141, potassium 3.5, chloride 114, CO2 17 , BUN 9, creatinine 0.67. Random glucose was 92. Lactic acid 1.6, troponin negative, lipase negative. CXR and abdominal pelvic CT scan contrast was unrevealing. Urinalysis revealed trace protein, trace blood, trace bili, urobilinogen, and leukoesterase. No significant pyuria was seen. He was noted to have necrotic left lower extremity ulceration. He was managed symptomatically with fluids, Tylenol, morphine, Zofran, and empiric broad- spectrum antibiotics (vancomycin, Zosyn). He met sepsis physiology with blood culture drawn. Urine tox screen was positive for opiates (after opioids given in ED). He reported no chronic home medications. No heart murmur heard on exam. EKG revealed --> sinus tachy with PACS and non specific changes; QTc 0.427 Etiology of fever would be most consistent with necrotic ulceration of left lower extremity. d#1 Vanco/Zosyn 1. Sepsis admit PCU etiology felt 2/2 L LE necrotic ulceration CXR and abd/pelvic CT unrevealing, urinalysis non- contributory blood cx pending Medical supportive care; empiric Vanco/Zosyn 2. Left lower extremity necrotic ulceration Underlying abscess not excluded Will continue broad-spectrum antibiotics, additional imaging with CT noncontrast of left lower extremity, basic wound care orders placed Consultation to Dr. Kulkarni as this may require operative debridement/wound VAC OK for PICC line placement due to difficult access 3. Heroin abuse. Urine tox screen positive for opiates although was given morphine in ED prior to collection of urine 4.Hypertension No chronic home medications. observe clonidine 0.1 mg TID prn SBP greater than 170 5. chronic hepatitis C , genotype 1a HIV negative 03/29/15 transaminases stable AST/ALT 61/99 (03/29/15); today the are 42/28 6. cholestasis of acute illness expectant mgmt 7. DVT prophylaxis subQ heparin SCD to R LE if required Code Visit Inpatient E&M: 06134 Init Hosp L2
[2018-02-08 11:24] LABS: AST(SGOT) 42 U/L (15-37); Alanine Aminotransfer ALT/SGPT 28 U/L (16-61); Albumin, Serum 2.3 g/dL (3.2-5.0); Alkaline Phosphatase 202 U/L (45-117); Bilirubin, Direct 1.05 mg/dL (0.00-0.30); Globulin 5.9 g/dL (2.2-4.2); Protein, Total 8.2 g/dL (6.4-8.2)
[2018-02-08] MEDS: 0.9% Normal Saline 1,000 ML 75 ML IV (11:54)
[2018-02-08 12:11] LABS: Amphetamine Urine VISTA NEGATIVE (<1000 ng/mL); Barbiturate Urine VISTA NEGATIVE (< 200 ng/mL); Benzodiazepine Urine VISTA NEGATIVE (< 200 ng/mL); Cocaine Urine VISTA NEGATIVE (< 300 ng/mL); Ecstacy Urine VISTA NEGATIVE (< 500 ng/mL); Methadone Urine VISTA NEGATIVE (< 300 ng/mL); PCP Urine VISTA NEGATIVE (< 25 ng/mL); THC Urine VISTA NEGATIVE (< 50 ng/mL); Vista UDS pH Range 6
--- NOTE | 2018-02-08 12:44 | CT_ITS ---
STUDY: CT LEFT TIBIA AND FIBULA WITHOUT CONTRAST REASON FOR EXAM: Male, 57 years old. Necrotizing wounds of the lower medial calf. RADIATION DOSAGE (If Supplied By Facility): CTDIvol = ( 24.07 ) mGy, DLP = ( 3222.13 ) mGycm TECHNIQUE: Transaxial CT imaging of the tibia and fibula was performed. Sagittal and coronal images were reconstructed. Individualized dose optimization techniques were used for this CT. COMPARISON: None. FINDINGS: Normal visualized tibia and fibula. No fracture or periosteal reaction.. Normal visualized musculature. There is skin thickening on the medial aspect. There is focal irregularity and a small region of subcutaneous air consistent, series 2 image 330/520. There is no fluid collection seen. CT/Extremity Lower without Contra IMPRESSION: Skin thickening and subcutaneous edema. Small focus of subcutaneous air. No abscess. No osseous erosion. Electronically Signed: Igor Welch MD at 15:49 EDT , Service support ,
--- NOTE | 2018-02-08 13:12 | PCM.RX.CS ---
Consult Pharmacy has been consulted to manage selected antiobiotic: Vancomycin Type of Consult: New start Suspected Infection: Sepsis Prior Doses of Antibiotics Received/Current Regimen: Medications Discontinued Medications Vancomycin HCl 1,250 mg/ (Sodium Chloride) 275 mls @ 167 mls/hr IV X1 ONE Stop: 02/08/18 12:00 Last Admin: 02/08/18 11:51 Dose: 167 mls/hr Labs: Sodium 141 mmol/L (136-145) 02/08/18 08:22 Potassium 3.5 mmol/L (3.5-5.1) 02/08/18 08:22 Chloride 114 mmol/L (98-107) H 02/08/18 08:22 Carbon Dioxide 17.0 mmol/L (21.0-32.0) L 02/08/18 08:22 Anion Gap 10 (5-15) 02/08/18 08:22 BUN 9 mg/dL (7-18) 02/08/18 08:22 Creatinine 0.67 mg/dL (0.70-1.30) L 02/08/18 08:22 Est GFR (MDRD) Af Amer 157 mL/min (>60) 02/08/18 08:22 Est GFR (MDRD) Non-Af 130 mL/min (>60) 02/08/18 08:22 BUN/Creatinine Ratio 13.5 RATIO (10-20) 02/08/18 08:22 Glucose 92 mg/dL (74-106) 02/08/18 08:22 Estimated Creatinine Clearance: > 100 Goal Trough: 10-15 mcg/mL Pharmacy Plan for Drug Dosing: Patient initially received vancomycin 1250mg IV x1. Recommend 1750mg IV q12h per algorithm with trough prior to 4th dose. Pharmacy Service will continue to monitor and adjust dosing as required. Follow-Up Labs: Trough Vancomycin - 02/09/18 @ 1830
[2018-02-08] MEDS: Calcium Carbonate 500 MG Tablet 1000 MG PO ×2 (14:07→17:11)
[2018-02-08] MEDS: 0.9% NaCl Peripheral Flush Adult/Peds IV ×3 (14:09→21:39)
--- NOTE | 2018-02-08 14:23 | NURSING ---
Attempted IV start x2 without success. Shyla, Primary RN aware.
[2018-02-08] MEDS: Piperacil/Tazobactam 3.375 GM/50 ML ML IV ×2 (14:51→21:39)
[2018-02-08] MEDS: Morphine 2 MG/ML Syringe IV ×2 (17:11→21:38)
[2018-02-08] MEDS: Dicyclomine 10 MG Capsule 20 MG PO (19:03)
[2018-02-08] MEDS: Famotidine 20 MG Tablet PO (21:39)
[2018-02-08] MEDS: Heparin Injection (Vial) 5,000 UNIT/ML VIAL 5000 UNIT SC (21:39)
[2018-02-09] VITALS (10 sets, daily range): BP systolic 126–182; BP diastolic 53–90; PULSE 58–72; RESP 18; TEMP 36–37.2; O2SAT 95–100
[2018-02-09] MEDS: 0.9% Normal Saline 1,000 ML 75 ML IV ×2 (00:36→14:05)
[2018-02-09] MEDS: Morphine 2 MG/ML Syringe IV ×2 (03:28→08:12)
[2018-02-09] MEDS: Piperacil/Tazobactam 3.375 GM/50 ML ML IV ×3 (05:02→21:17)
[2018-02-09] MEDS: Calcium Carbonate 500 MG Tablet 1000 MG PO (08:12)
[2018-02-09] MEDS: 0.9% NaCl Peripheral Flush Adult/Peds IV ×4 (08:12→21:56)
--- NOTE | 2018-02-09 08:41 | PCM.PROGNOTE ---
Patient Problems: Active and Suspected Problems Sepsis (Acute) MRSA bacteremia (Acute) Subjective: Chief complaint: Follow-up after admission for acutely infected left leg gangrenous ulcer/wound with sepsis, patient presenting complaint was abdominal pain which is of unclear etiology. Patient seen and examined. No acute events overnight. He still complaining of left-sided abdominal pain, minimal improvement. He still complaining of left leg pain, rated as 9 out of 10 in severity. He has been afebrile, blood pressure stable, pulse ox is maintained on room air. - Physical Exam General: Alert, Oriented x3, Cooperative, - - He is in moderate pain. HEENT: Atraumatic, PERRLA, EOMI, Normocephalic Oral: Moist Mucosa, No Gingival or Mucosal Lesions/ Ulcerations Neck: Supple, No JVD, Negative Carotid Bruits, Trachea Midline, Thyroid Normal Size and Texture Lungs: Clear to auscultation, No rhonchi, No wheeze, No rales, Diminished Cardiovascular: Regular rate, Regular Rhythm, Normal S1, Normal S2 Abdomen: Bowel Sounds Present, Soft, Non-Distended, No Hepato-splenomegaly, Obese, - - Minimal left-sided tenderness, no guarding or rigidity. Extremities: No clubbing, No cyanosis, No edema Skin: No rashes, Ulcer/ Wound - Left leg: Gangrenous ulcer with with gangrene on the medial aspect of the left gland measuring about 3 x 12 cm Lymphatic: No Cervical, Supraclavicular, or Inguinal Adenopathy Neurological: Cranial nerves II-XII grossly intact, Motor Exam 5/5 strength throughout Psych/Mental Status: Normal Affect, Appropriate, Alert and oriented to time, place, person, mood and affect Vital Signs Temp Pulse Resp BP Pulse Ox 98.9 F 58 L 18 126/53 H 100 02/09/18 03:23 02/09/18 06:50 02/09/18 03:23 02/09/18 03:23 02/09/18 03:23 Oxygen Flow Rate (L/min) 2 Oxygen Delivery Method Room Air Weight: 300 lb 0.786 oz Body Mass Index (BMI) 37.5 Intake and Output for Last 24 Hours 02/07/18 02/08/18 02/09/18 23:59 23:59 23:59 Intake Total 1989.1 / 1989. 753.9 / 753.9 Output Total 700 / 700 300 / 300 Balance 1290.1 / 1290.1 453.9 / 453.9 Microbiology Past 72 Hours 02/08/18 10:40 Bacteria Detection (PCR) - Final Blood Culture (Wb) - Left Hand Meth. resistant Staph. aureus Blood Culture - Preliminary Meth. resistant Staph. aureus Laboratory Tests Past 24 Hrs 02/08/18 11:00 Total Bilirubin 1.60 H Direct Bilirubin 1.05 H AST 42 H ALT 28 Alkaline Phosphatase 202 H Total Protein 8.2 Albumin 2.3 L Globulin 5.9 H Medical Necessity - Tobacco Use Smoking Status: Current every day smoker Assessment/Plan All Active Problems Sepsis (Acute) MRSA bacteremia (Acute) This is a 57 years old male patient presented to the emergency department because of left-sided abdominal pain, found to have left lower leg nonhealing, infected gangrenous ulcer with sepsis and MRSA bacteremia. #1 acute left lower extremity infected/necrotic ulcer/surrounding cellulitis: He is on IV vancomycin and Zosyn. Vital signs are stable, afebrile. White blood cell count is trending down. Blood culture revealed MRSA. Wound cultures pending. Plastic surgery consulted, awaiting recommendations. Plan: Continue IV antibiotics, infectious disease consult. Secondary to above. #2 sepsis: Secondary to above. Lactic acid was normal. Vital signs are stable. He is on IV antibiotics as above. Plan as above. #3 MRSA bacteremia: Likely source is the left lower extremity gangrenous ulcer/wound. She is already on IV vancomycin, plan as above. #4 left sided abdominal pain: This is chronic. CT scan abdomen and pelvis without contrast revealed hepatosplenomegaly, otherwise no acute findings. Elevated bilirubin but this is chronic, alk phos is also slightly elevated and it was also chronic. Lipase is normal. Patient is on IV morphine for pain. Will change morphine to IV Dilaudid. #5 hypocalcemia: Admission calcium was 6.1 mg/dL. On admission, serum albumin was 2.3. She was on Tums supplement. Today's calcium is 7.8 mg/dL, serum albumin is 1.9. Corrected calcium is 9.4 mg/dL. #6 hypertension: Patient mentioned that he does have high blood pressure but does not take any medication at home. At this time, blood pressure stable, plan to monitor. #7 hepatitis C: Hepatitis C serology sent. #8 drug abuse: Recently, patient was admitted for opioid withdrawal. He stated that his last dose of heroin was about 3 weeks ago. #9 DVT prophylaxis: Subcu heparin. This note was generated with [employer] dictation software. It may contain incorrect words, spelling, and punctuation that were not noted in checking the note before signing. Code Visit Inpatient E&M: 93901 Subs Hosp L3
[2018-02-09] MEDS: HYDROmorphone 1 MG/ML Syringe IV ×4 (09:28→21:56)
[2018-02-09] MEDS: Famotidine 20 MG Tablet PO ×2 (09:38→21:16)
[2018-02-09 09:58] LABS: Absolute Lymphocyte Count 2.08 X10^3/ul (0.83-4.51); Absolute Neutrophil Count 8.4 X10^3/uL (2.0-7.7); Basophil# 0.01 X10^3/uL; Basophil% 0.1 % (0-1); Eosinophil# 0.17 X10^3/uL; Eosinophils% 1.5 % (0-5); Hematocrit 36.8 % (40-54); Hemoglobin 12.1 g/dl (13.0-16.5); Lymphocyte # 2.08 X10^3/ul (4.0); Mean Corp Hgb Conc 32.9 g/gl (32-36); Mean Corpuscular Hgb 32.2 pg (27.0-32.0); Mean Corpuscular Volume 97.9 fL (80-94); Mean Platelet Vol. 10.7 fl (6.2-12.0); Monocyte# 0.85 X10^3/uL; Monocyte% 7.4 % (0-10); Neutrophil # 8.38 X10^3/uL (2.7-7.7); Neutrophil % 72.7 % (47-70); Platelet Count 154 K/mm3 (150-450); RBC Distribution Width CV 12.3 % (11.6-14.6); Red Blood Count 3.76 M/mm3 (4.6-6.2); White Blood Count 11.5 K/mm3 (4.4-11.0)
[2018-02-09 10:00] LABS: POSITIVE COUNT NO; POSITIVE DIFFERENTIAL NO; POSITIVE MORPHOLOGY NO
[2018-02-09 10:27] LABS: ALB/GLOB Ratio 0.3 RATIO (0.9-2.4); AST(SGOT) 36 U/L (15-37); Alanine Aminotransfer ALT/SGPT 26 U/L (16-61); Albumin, Serum 1.9 g/dL (3.2-5.0); Alkaline Phosphatase 171 U/L (45-117); Anion Gap 5 (5-15); BUN 11 mg/dL (7-18); BUN/Creat Ratio 12.8 RATIO (10-20); Calcium,Total 7.8 mg/dL (8.5-10.1); Chloride 109 mmol/L (98-107); Creatinine, Serum 0.86 mg/dL (0.70-1.30); EST Glomerular Filtration Rate 97 mL/min (>60); Est Glom Filt Rate - Afr Amer 118 mL/min (>60); Estimated Creatinine Clearance 113.27 ml/min; Globulin 5.6 g/dL (2.2-4.2); Glucose 113 mg/dL (74-106); Lipase 144 U/L (73-393); Potassium 3.7 mmol/L (3.5-5.1); Protein, Total 7.5 g/dL (6.4-8.2); Sodium Level 139 mmol/L (136-145)
--- NOTE | 2018-02-09 10:31 | CASEMGMT ---
Face to Face with patient for initial transition planning/care coordination assessment. OMARI MCKEON introduced self and role at [facility], pt voices understanding and consents to assessment at this time. Pt is lying in bed in no distress at this time. Pt is A/O x4 at this time and answers all questions appropriately at this time. Care providers, pharmacy, and demographics verified. See attached link. Pt voices no further concerns/needs at this time. Advised pt to ask for CM if any further questions/concerns/needs arise, voices understanding. PLAN: [place] OMARI MCKEON
--- NOTE | 2018-02-09 10:39 | ECHOD_ITS ---
Reason For Study: dyspnea/SOB Procedure This was a 2D Doppler, Color Flow transthoracic echocardiogram. The exam was of poor technical quality due to body habitus. The study was technically difficult. Exam performed portable in patient room. Left Ventricle Normal LV size. Left ventricular systolic function is normal. The estimated ejection fraction is 65 %. Normal diastology for age. No regional wall motion abnormalities noted. Right Ventricle Normal RV size. Normal systolic function. Atria The left atrium is mildly enlarged. Normal right atrium. No doppler evidence for ASD. Mitral Valve There is mild mitral annular calcification. Normal mitral valve. Trivial mitral valve insufficiency. Tricuspid Valve Normal tricuspid valve. Trivial tricuspid valve insufficiency. Right ventricular systolic pressure estimated to be 31 mmHg. Aortic Valve Trisinus/trileaflet aortic valve. Mild focal aortic valve thickening. Pulmonic Valve The pulmonic valve is not well visualized. Great Vessels Normal sized aortic root. Pericardium/Pleural No pericardial effusion. MMode/2D Measurements & Calculations LVIDd: 5.5 cm IVSd: 1.0 cm Ao root diam: 3.6 cm LVIDs: 3.5 cm LVPWd: 1.2 cm LA dimension: 4.3 cm FS: 35.3 % LAV(MOD-bp): 119.8 ml LA A4 area: 30.3 cm2 RA A4 area: 24.6 cm2 LAV(MOD-bp) Indexed: 46.0 ml/m2 LAV(MOD-sp2): 111.8 ml LAV(MOD-sp4): 122.3 ml Doppler Measurements & Calculations MV E max uri: 94.4 cm/sec Lat Peak E' Uri: 12.5 cm/sec Med Peak E' Uri: 11.4 cm/sec MV A max uri: 65.7 cm/sec E/E' lat: 7.6 E/E' med: 8.3 MV E/A: 1.4 Ao V2 max: 157.4 cm/sec LV V1 max: 108.3 cm/sec PA V2 max: 94.3 cm/sec Ao max P.9 mmHg LV V1 max P.7 mmHg TR max uri: 263.5 cm/sec TR max P.8 mmHg Interpretation Summary The study was technically difficult. Left ventricular systolic function is normal. The estimated ejection fraction is 65 %. The left atrium is mildly enlarged. There is mild mitral annular calcification. Trivial mitral valve insufficiency. Trivial tricuspid valve insufficiency. Mild focal aortic valve thickening. Right ventricular systolic pressure estimated to be 31 mmHg. Normal diastology for age. Ordering Physician: Con Davis Referring Physician: Devin Orozco Performed By: Daniela Manzano, ABBIE, RVT
--- NOTE | 2018-02-09 10:42 | PCM.HP.ID ---
Problem List (1) MRSA bacteremia Status: Acute (2) Sepsis Status: Acute Qualifiers: Sepsis type: sepsis due to unspecified organism Qualified Code(s): A41.9 - Sepsis, unspecified organism (3) Hepatitis C Status: Chronic (4) History of heroin abuse Status: Chronic Reason for Consult: mrsa bacteremia Consulted by: Dr. Johnston History of Present Illness: The patient is a 57 year old M with h/o hep C and ivdu who presented with sudden onset SOB and severe L chest pain, worse with deep breath, associated with fever and chills. Some nausea. Reports L heard wound for several weeks with progressive pain, redness, swelling, and drainage. No recent abx. Denies any h/o MRSA. No prior hep C treatment. Reports last IV heroin use was in 06/2017. Last cocaine use was several weeks ago. Does share needles. Does not lick his needles. No new joint or back pain. Came to ED, temp up to 102.6, cxs sent, started on vanc/zosyn due to LLE infection. Bcx now with mrsa. Full ROS performed and neg except as noted above. - Medical History Past Medical History (Chronic Problems): Chronic Problems Abdominal pain (Chronic) Hypertension (Chronic) Hepatitis C (Chronic) History of heroin abuse (Chronic) Allergies/Adverse Reactions: Allergies No Known Allergies Allergy (Verified 02/08/18 06:57) Home Medications: Ambulatory Orders Medication Instructions Recorded NK [NK] 02/08/18 - Social History Tobacco Use: cigarettes SMOKING STATUS:: Current every day smoker Drug Use: cocaine, heroin Vital Signs Temp Pulse Resp BP Pulse Ox 98.9 F 58 L 18 126/53 H 100 02/09/18 03:23 02/09/18 06:50 02/09/18 03:23 02/09/18 03:23 02/09/18 03:23 Oxygen Flow Rate (L/min) 2 Oxygen Delivery Method Room Air Weight: 136.1 kg Body Mass Index (BMI) 37.5 Microbiology Past 72 Hours 02/08/18 10:40 Bacteria Detection (PCR) - Final Blood Culture (Wb) - Left Hand Meth. resistant Staph. aureus Blood Culture - Preliminary Meth. resistant Staph. aureus Laboratory Tests Past 24 Hrs 02/08/18 02/09/18 02/09/18 11:00 09:20 09:20 WBC 11.5 H RBC 3.76 L Hgb 12.1 L Hct 36.8 L MCV 97.9 H MCH 32.2 H MCHC 32.9 RDW 12.3 RDW Differential 44.0 H Plt Count 154 MPV 10.7 Immature Gran % (Auto) 0.300 Neut % (Auto) 72.7 H Lymph % (Auto) 18.0 L [place] % (Auto) 7.4 Eos % (Auto) 1.5 Baso % (Auto) 0.1 Absolute Neuts (auto) 8.4 H Absolute Lymphs (auto) 2.08 Total Counted Not Reportable Sodium 139 Potassium 3.7 Chloride 109 H Carbon Dioxide 25.0 Anion Gap 5 BUN 11 Creatinine 0.86 Estim Creat Clear Calc 113.27 Est GFR (MDRD) Af Amer 118 Est GFR (MDRD) Non-Af 97 BUN/Creatinine Ratio 12.8 Glucose 113 H Calcium 7.8 L Total Bilirubin 1.60 H 0.90 Direct Bilirubin 1.05 H AST 42 H 36 ALT 28 26 Alkaline Phosphatase 202 H 171 H Total Protein 8.2 7.5 Albumin 2.3 L 1.9 L Globulin 5.9 H 5.6 H Albumin/Globulin Ratio 0.3 L Lipase 144 - Other Studies Radiology: [] reviewed Other Studies: [] Route of nutrition/ use of supplements: [] Nutritional Intake: [] IV Site: [] Downing Catheter: [] - Physical Exam General: Alert, Oriented x3, Cooperative, No apparent distress HEENT: Atraumatic, PERRLA, EOMI Neck: Supple, No Nodes Lungs: Clear to auscultation, Normal air movement Cardiovascular: Regular rate, Regular Rhythm, No murmurs Abdomen: Soft, Non Tender, Non-Distended Extremities: No edema Skin: Ulcer/ Wound - L heard/calf infected ulcer IV Site: PICC, without redness Musculoskeletal: No Tenderness to Palpation of Joints or Extremities, - - no spine tenderness Neurological: Cranial nerves II-XII grossly intact - Assessment/Plan Antibiotics: [] Assessment/Plan: [] Active and Suspected Problems sepsis with MRSA bacteremia likely due to LLE infection - picc placed while bacteremia. Will repeat bcx, check echo. Wound cx pending. On vanc/zosyn for broad empiric coverage. IVDU with hep C - pt agrees with hiv testing. Will check hep C pcr and B serologies. Will follow, thank you.
[2018-02-09 14:13] LABS: HIV - WCH Non-Reactive (Nonreactive)
--- NOTE | 2018-02-09 14:38 | PCM.CONS.GEN ---
Reason for Consult Date of Consultation: 02/09/18 Reason for Consultation: Nonhealing infected MRSA ulcer left medial leg. REFERRING PHYSICIAN: Dr. Le. TRANSPORTATION MAINTENANCE WORKER: Dr. Kulkarni. History of Present Illness: The patient is a 57 year old M with past medical history of heroin abuse was admitted for abdominal pain. It was noted also that he had a nonhealing infected ulcer left medial leg with malodor. He doesn't know how long the ulcer has been present. In the ED, WBC was 17. This morning it had decreased to 11. Blood cultures showed MRSA. Lactate was 1.6. CT Abdomen showed no intra-abdominal pathology. CT Left leg showed skin thickening and edema. No definite abscess seen. He was started on IV Vancomycin and Zosyn. The patient denies use of heroin recently. He states his last use was about a month ago. His tox screen in the ED was positive for opiates. I was asked to evaluate this patient for surgical options for treatment. Past Medical History Past Medical History (Chronic Problems): Chronic Problems Smoker (Chronic) Nonhealing ulcer of left lower leg (Chronic) nonhealing infected necrotic MRSA ulcer left medial leg Abdominal pain (Chronic) Hypertension (Chronic) Hepatitis C (Chronic) History of heroin abuse (Chronic) Allergies No Known Allergies Allergy (Verified 02/08/18 06:57) Current Medications Al Hydroxide/Mg Hydroxide (Mylanta Ii) 30 ml PO Q6H PRN Bisacodyl (Dulcolax) 5 mg PO DAILY PRN Dicyclomine HCl (Bentyl) 20 mg PO Q6H PRN Docusate Sodium (Colace) 100 mg PO BID PRN Famotidine (Pepcid) 20 mg PO BID VALENTIN Heparin Sodium (Porcine) (Heparin Na) 5,000 unit SC Q12 VALENTIN Hydromorphone HCl (Dilaudid Inj) 1 - 2 mg IV Q4H PRN Piperacillin Sod/Tazobactam Sod (Zosyn) 3.375 gm in 50 mls @ 12.5 mls/hr IV Q8 VALENTIN Vancomycin HCl 1,750 mg/ (Sodium Chloride) 535 mls @ 250 mls/hr IV Q12H VALENTIN Magnesium Hydroxide (Milk Of Magnesia) 30 ml PO DAILY PRN Nicotine (Nicoderm Cq (Pbkc)) 21 mg TRANSDERM. DAILY PRN Nutritional Formula (Lactose Free) (Ensure Enlive) 120 ml PO 4X/DAY VALENTIN Ondansetron HCl (Zofran) 4 mg IV Q8H PRN Promethazine HCl (Phenergan) 12.5 mg IV Q6H PRN Zolpidem Tartrate (Ambien (Generic)) 5 mg PO QHS PRN Home Medications: Ambulatory Orders Medication Instructions Recorded NK [NK] 02/08/18 Surgical History: cholecystectomy Psychiatric History: No pertinent psych hx Smoking Status: Current every day smoker - *Family History Maternal History Items: Cancer - Breast cancer Paternal History Items: Unknown Review of Systems Comment: General - Denies fever and weight loss. Has fatigue. Has MRSA bacteremic sepsis. Has history of IV drug use. Eyes - Denies cataracts and glaucoma. ENT - Denies nasal congestion and sore throat. Endocrine - Denies excessive thirst and urination. Skin - Denies skin cancer. Has large necrotic ulcer left medial leg. Musculoskeletal - Denies joint pain, joint stiffness, weakness of muscles and joints, back pain, and arthritis. Neuro - Denies headaches. Cardiovascular - Denies chest pain, fatigue, and shortness of breath with exertion. Psych - Denies anxiety and depression. Respiratory - Denies chronic cough and shortness of breath. Gastrointestinal - Denies nausea, vomiting, diarrhea, and constipation. Hematologic - Denies abnormal bruising and bleeding. Genitourinary - Denies hematuria and urinary frequency. Patient Problems: Active and Suspected Problems Sepsis (Acute) MRSA bacteremia (Acute) - Physical Exam General - Alert and Oriented HEENT - PERRL. EOMI. Throat is clear. Neck - Supple and nontender. No cervical adenopathy. Lungs - Clear to auscultation. Heart - Regular rate and rhythm. Abdomen - Soft and nondistended. Extremities - FROM. No axillary adenopathy. No inguinal adenopathy. Radial pulses are palpable. Dorsalis pedis pulses are palpable. On the left medial leg is a nonhealing infected MRSA ulcer. Malodorous exudate present. Measures about 20 cm. Mild swelling present. Some tenderness to palpation. Neuro - CN II-XII grossly intact. Psych - Normal mood and affect. Vital Signs Temp Pulse Resp BP Pulse Ox 97.5 F L 64 18 127/65 H 98 02/09/18 09:20 02/09/18 11:02 02/09/18 09:20 02/09/18 09:20 02/09/18 09:20 Oxygen Flow Rate (L/min) 2 Oxygen Delivery Method Room Air Weight: 300 lb 0.786 oz Body Mass Index (BMI) 37.5 Intake and Output for Last 24 Hours 02/07/18 02/08/18 02/09/18 23:59 23:59 23:59 Intake Total 1990.1 / 1990.1 2275.9 / 2275.9 Output Total 700 / 700 600 / 600 Balance 1290.1 / 1290.1 1675.9 / 1675.9 Microbiology Past 72 Hours 02/08/18 10:40 Bacteria Detection (PCR) - Final Blood Culture (Wb) - Left Hand Meth. resistant Staph. aureus Blood Culture - Preliminary Meth. resistant Staph. aureus Laboratory Tests Past 24 Hrs 02/09/18 02/09/18 02/09/18 09:20 09:20 11:54 WBC 11.5 H RBC 3.76 L Hgb 12.1 L Hct 36.8 L MCV 97.9 H MCH 32.2 H MCHC 32.9 RDW 12.3 RDW Differential 44.0 H Plt Count 154 MPV 10.7 Immature Gran % (Auto) 0.300 Neut % (Auto) 72.7 H Lymph % (Auto) 18.0 L [place] % (Auto) 7.4 Eos % (Auto) 1.5 Baso % (Auto) 0.1 Absolute Neuts (auto) 8.4 H Absolute Lymphs (auto) 2.08 Total Counted Not Reportable Sodium 139 Potassium 3.7 Chloride 109 H Carbon Dioxide 25.0 Anion Gap 5 BUN 11 Creatinine 0.86 Estim Creat Clear Calc 113.27 Est GFR (MDRD) Af Amer 118 Est GFR (MDRD) Non-Af 97 BUN/Creatinine Ratio 12.8 Glucose 113 H Calcium 7.8 L Total Bilirubin 0.90 AST 36 ALT 26 Alkaline Phosphatase 171 H Total Protein 7.5 Albumin 1.9 L Globulin 5.6 H Albumin/Globulin Ratio 0.3 L Lipase 144 Hep Bs Antigen Pending Hep B Core Total Ab Pending HCV RNA Quant (PCR) Pending HIV 1&2 Antibody 02/09/18 11:54 WBC RBC Hgb Hct MCV MCH MCHC RDW RDW Differential Plt Count MPV Immature Gran % (Auto) Neut % (Auto) Lymph % (Auto) [place] % (Auto) Eos % (Auto) Baso % (Auto) Absolute Neuts (auto) Absolute Lymphs (auto) Total Counted Sodium Potassium Chloride Carbon Dioxide Anion Gap BUN Creatinine Estim Creat Clear Calc Est GFR (MDRD) Af Amer Est GFR (MDRD) Non-Af BUN/Creatinine Ratio Glucose Calcium Total Bilirubin AST ALT Alkaline Phosphatase Total Protein Albumin Globulin Albumin/Globulin Ratio Lipase Hep Bs Antigen Hep B Core Total Ab HCV RNA Quant (PCR) HIV 1&2 Antibody Non-Reactive Diagnostic Data Abdomen/Pelvis CT 02/08/18 07:30 IMPRESSION: Hepatosplenomegaly. Prior cholecystectomy. No acute intra-abdominal abnormality. Electronically Signed: Igor Welch MD at 8:18 EDT , Service support , ADDENDUM: 02/08/18 0828 Chest X-Ray 02/08/18 07:50 IMPRESSION: Normal x-ray examination of the chest. Electronically Signed: Igor Welch MD at 8:20 EDT , Service support , Lower Extremity CT 02/08/18 12:44 IMPRESSION: Skin thickening and subcutaneous edema. Small focus of subcutaneous air. No abscess. No osseous erosion. Electronically Signed: Igor Welch MD at 15:49 EDT , Service support , Assessment/Plan All Active Problems Skin necrosis (Acute) Abscess of left leg (Acute) Sepsis (Acute) MRSA bacteremia (Acute) 1. Nonhealing infected necrotic MRSA ulcer left medial leg. 2. MRSA bacteremic sepsis. 3. History of IV drug use. 4. Smoker. CT reviewed. No obvious abscess seen. Continue IV antibiotics with Vancomycin and Zosyn. A PICC line has been ordered. The necrotic ulcer left medial leg is probably the source of his MRSA bacteremic sepsis. He has an Echo scheduled to look for involvement of his heart valves. He needs operative incision and drainage and excisional debridement. Anticipate debridement down to the muscular fascia. Will send tissue to Pathology for analysis to rule out carcinoma and to Microbiology for culture. A positive culture may necessitate antibiotic modification. Postop wound care will be with the VAC. Anticipate increased metabolic demands from the infection and the sepsis. Will check a Prealbumin. Encourage nutritional supplementation with protein to help the healing process. After discharge, he will [facility]. If there is plateau in the healing process, can proceed with delayed closure with skin grafting. Discussed with the patient the importance of getting help for his history of IV drug use. Continued use will increase his risk of continued infections, amputation, and . He is aware of that possibility and wishes to proceed with getting help. He will followup with his PCP for that assistance. Patient was informed of the risks and complications of the procedure including alternatives to surgery. These were discussed with the patient personally. Patient voices understanding and wishes to proceed. He understands that there will be a large wound after the surgery because all of the infection needs to be debrided. Encouraged patient to stop smoking as it may have deleterious effects on wound healing. Code Visit Inpatient E&M: 36373 Init Hosp L2 - ICD-10 - L97.929, L02.416, I96, R78.81, A41.9, Z87.898, F17.200
[2018-02-09 19:37] LABS: Vancomycin, Trough Level 29.3 ug/mL (5.0-15.0)
[2018-02-09] MEDS: Heparin Injection (Vial) 5,000 UNIT/ML VIAL 5000 UNIT SC (21:17)
[2018-02-10] VITALS (16 sets, daily range): BP systolic 131–177; BP diastolic 70–99; PULSE 54–80; RESP 14–20; TEMP 36.3–37.1; O2SAT 94–98; BMI 37.5
--- NOTE | 2018-02-10 01:30 | NURSING ---
PT complaining of SOB, SpO2 97% on room air at this time lung sounds clear clear to auscultation. Pt instructed to take slow deep breathes. Pt states SOB related to pain. Pain medication will be given when due.
[2018-02-10] MEDS: HYDROmorphone 1 MG/ML Syringe IV ×6 (02:06→22:58)
[2018-02-10] MEDS: 0.9% NaCl Peripheral Flush Adult/Peds IV ×3 (04:04→22:58)
[2018-02-10 04:20] LABS: Absolute Lymphocyte Count 1.81 X10^3/ul (0.83-4.51); Absolute Neutrophil Count 5.6 X10^3/uL (2.0-7.7); Basophil# 0.02 X10^3/uL; Basophil% 0.2 % (0-1); Eosinophils% 2.3 % (0-5); Hematocrit 38.5 % (40-54); Hemoglobin 12.9 g/dl (13.0-16.5); Lymphocyte # 1.81 X10^3/ul (4.0); Lymphocyte % 21.2 % (19-41); Mean Corp Hgb Conc 33.5 g/gl (32-36); Mean Corpuscular Hgb 32.6 pg (27.0-32.0); Mean Corpuscular Volume 97.2 fL (80-94); Monocyte% 10.5 % (0-10); Neutrophil # 5.58 X10^3/uL (2.7-7.7); Neutrophil % 65.4 % (47-70); POSITIVE COUNT NO; POSITIVE DIFFERENTIAL NO; POSITIVE MORPHOLOGY NO; Platelet Count 201 K/mm3 (150-450); RBC Distribution Width CV 11.6 % (11.6-14.6); RBC Distribution Width SD 40.2 fl (35.1-43.9); Red Blood Count 3.96 M/mm3 (4.6-6.2); White Blood Count 8.5 K/mm3 (4.4-11.0)
[2018-02-10 04:21] LABS: Erythrocyte Sedimentation Rate 58 mm/hr (0-20)
[2018-02-10 04:24] LABS: Partial Thromboplast Time 29.3 Seconds (24.1-36.2)
[2018-02-10 04:33] LABS: ALB/GLOB Ratio 0.4 RATIO (0.9-2.4); AST(SGOT) 43 U/L (15-37); Alanine Aminotransfer ALT/SGPT 28 U/L (16-61); Albumin, Serum 1.9 g/dL (3.2-5.0); Alkaline Phosphatase 158 U/L (45-117); Anion Gap 7 (5-15); BUN 13 mg/dL (7-18); BUN/Creat Ratio 17.2 RATIO (10-20); Calcium,Total 7.9 mg/dL (8.5-10.1); Chloride 106 mmol/L (98-107); Creatinine, Serum 0.76 mg/dL (0.70-1.30); EST Glomerular Filtration Rate 113 mL/min (>60); Est Glom Filt Rate - Afr Amer 137 mL/min (>60); Estimated Creatinine Clearance 128.17 ml/min; Globulin 5.3 g/dL (2.2-4.2); Glucose 114 mg/dL (74-106); Potassium 3.5 mmol/L (3.5-5.1); Prealbumin 5.1 mg/dL (20.0-40.0); Protein, Total 7.2 g/dL (6.4-8.2); Sodium Level 139 mmol/L (136-145)
[2018-02-10] MEDS: Piperacil/Tazobactam 3.375 GM/50 ML ML IV ×2 (05:11→14:00)
[2018-02-10] MEDS: 0.9% Normal Saline 1,000 ML 75 ML IV (05:17)
--- NOTE | 2018-02-10 07:30 | UL_PTH ---
PATIENT: ROYCE IRVING LOC: [facility] U#:[id number] AGE/SX: 57/M ROOM: [facility] RE02/08/[address]: Dr. Gloria Johnston MD : 1960 BED: 1 DIS: 02/12/2018 SPEC #: [id number] RECD: 02/11/18 08:33 STATUS: RHONDA FELICIA #: [id number] PEDRITO: 02/10/18 07:[address]: Pj Kulkarni DEPT: SURGICAL PATHOLOGY RECD BY: Flo Kahn ENTERED: 02/11/18 13:00 SP TYPE: ULCER OTHR DR: MD Dr. Gloria Davis III, MD Harriet Jakob, MD Dr. James A Slaby, MD Dr. Robert Leininger, MD Tissues: ULCER Procedures: Surgery Specimen Level III Comments: @ Ordering doctor for SUIII edited from to @ by RGOOD at 02/11/18 1502 @ Submitting doctor edited from to @ by RGOOD at 02/11/18 1502 HEADER OPERATION: Surgical preparation left medial leg with incision and drainage PRE-OP DIAGNOSIS: Nonhealing infected necrotic MRSA ulcer left medial TISSUE SUBMITTED: Left medial leg ulcer MICROSCOPIC DIAGNOSIS Skin and soft tissue, left medial leg ulcer, excision: Ulceration with associated acute and chronic inflammation and granulation. Negative for acid-fast bacilli and fungal organisms. AM:sanjiv 02/12/18 COMMENT AFB and GMS stains with matched controls were used in the evaluation of this case. MICROSCOPIC DESCRIPTION Slides are reviewed. GROSS DESCRIPTION Received in fixative is one container labeled with the patient's name and designated left medial leg ulcer. The specimen consists of a piece of dark brown skin measuring 25 x 8 x 8 cm and up to 1 cm in thickness. The skin surface shows multiple areas of ulceration. Bridge Manager sections are submitted in two cassettes. / SJ:sanjiv 02/11/18 TC:2 CPT: 02470, 17793 x2
--- NOTE | 2018-02-10 07:36 | CT_ITS ---
STUDY: CT ABDOMEN AND PELVIS WITH CONTRAST REASON FOR EXAM: Male, 57 years old. Pain RADIATION DOSAGE (If Supplied By Facility): CTDIvol = ( 23.73 ) mGy, DLP = ( 1395.00 ) mGycm TECHNIQUE: Transaxial images were obtained from the dome of the diaphragm to the symphysis pubis with oral contrast. 100 ml of Isovue 300 contrast was administered. Sagittal and coronal images were reconstructed. Individualized dose optimization techniques were used for this CT. COMPARISON: None. FINDINGS: Small left effusion. Basilar opacities. Right lower lung granuloma. The visualized portions of the heart are within normal limits. Normal liver. There are surgical clips in the gallbladder fossa consistent with a prior cholecystectomy. Normal spleen. Normal pancreas. Normal bilateral adrenal glands. There is a stable 2 cm right upper pole renal cyst. Normal left kidney. Normal visualized stomach. Normal small intestine. Normal colon. The appendix is visualized and appears normal. Normal abdominal aorta. Normal inferior vena cava. Normal retroperitoneum. Normal urinary bladder. There is a small umbilical hernia containing fat. Normal osseous structures. CT/Abdomen/Pelvis WITH Contrast IMPRESSION: Stable right upper pole renal basilar atelectasis. Left lower lung infiltrate not excluded. No acute abdominal or pelvic findings. Electronically Signed: Jaime Dennis DO at 20:41 EDT , Service support ,
--- NOTE | 2018-02-10 07:38 | PCM.PROGNOTE ---
Patient Problems: Active and Suspected Problems Sepsis (Acute) MRSA bacteremia (Acute) Subjective: Chief complaint: Follow-up after admission for nonhealing MRSA infected necrotic ulcer/surrounding cellulitis of the left medial leg and MRSA bacteremia. Patient seen and examined. No acute events overnight. He is still complaining of left side abdominal pain, mainly on the left lumbar and left lower quadrant region, sharp pain, 3 out of 10 in severity. Today, he had one episode of diarrhea. He denied nausea vomiting. Denies fever chills. Left leg pain is manageable with current pain medication regimen. His vital signs are stable. - Physical Exam General: Alert, Oriented x3, Cooperative, - - He is in mild pain. HEENT: Atraumatic, PERRLA, EOMI, Normocephalic Oral: Moist Mucosa, No Gingival or Mucosal Lesions/ Ulcerations Neck: Supple, No JVD, Negative Carotid Bruits, Trachea Midline, Thyroid Normal Size and Texture Lungs: Clear to auscultation, No rhonchi, No wheeze, No rales, Diminished Cardiovascular: Regular rate, Regular Rhythm, Normal S1, Normal S2, PMI Normal Abdomen: Bowel Sounds Present, Soft, Non-Distended, No Hepato-splenomegaly, Tender - Minimal left-sided tenderness, no guarding or rigidity. Extremities: No clubbing, No cyanosis, No edema Skin: No rashes, Ulcer/ Wound - Left leg ulcer. Lymphatic: No Cervical, Supraclavicular, or Inguinal Adenopathy Neurological: Cranial nerves II-XII grossly intact, Motor Exam 5/5 strength throughout Psych/Mental Status: Normal Affect, Appropriate, Alert and oriented to time, place, person, mood and affect Vital Signs Temp Pulse Resp BP Pulse Ox 98.5 F 62 16 149/75 H 97 02/10/18 04:13 02/10/18 04:13 02/10/18 04:13 02/10/18 04:13 02/10/18 04:13 Oxygen Flow Rate (L/min) 2 Oxygen Delivery Method Room Air Weight: 300 lb 0.786 oz Body Mass Index (BMI) 37.5 Intake and Output for Last 24 Hours 02/08/18 02/09/18 02/10/18 23:59 23:59 23:59 Intake Total 1989. / 1989. 3186.9 / 3186.9 1209 / 1209 Output Total 700 / 700 1200 / 1200 1000 / 1000 Balance 1290.1 / 1290.1 1986.9 / 1985.9 209 / 209 Microbiology Past 72 Hours 02/09/18 11:54 Blood Culture - Preliminary Blood Culture (Wb) - Line Draw 02/08/18 10:40 Bacteria Detection (PCR) - Final Blood Culture (Wb) - Left Hand Meth. resistant Staph. aureus Blood Culture - Preliminary Meth. resistant Staph. aureus Laboratory Tests Past 24 Hrs 02/09/18 02/09/18 02/09/18 09:20 09:20 11:54 WBC 11.5 H RBC 3.76 L Hgb 12.1 L Hct 36.8 L MCV 97.9 H MCH 32.2 H MCHC 32.9 RDW 12.3 RDW Differential 44.0 H Plt Count 154 MPV 10.7 Immature Gran % (Auto) 0.300 Neut % (Auto) 72.7 H Lymph % (Auto) 18.0 L [place] % (Auto) 7.4 Eos % (Auto) 1.5 Baso % (Auto) 0.1 Absolute Neuts (auto) 8.4 H Absolute Lymphs (auto) 2.08 Total Counted Not Reportable ESR APTT Sodium 139 Potassium 3.7 Chloride 109 H Carbon Dioxide 25.0 Anion Gap 5 BUN 11 Creatinine 0.86 Estim Creat Clear Calc 113.27 Est GFR (MDRD) Af Amer 118 Est GFR (MDRD) Non-Af 97 BUN/Creatinine Ratio 12.8 Glucose 113 H Calcium 7.8 L Total Bilirubin 0.90 Direct Bilirubin AST 36 ALT 26 Alkaline Phosphatase 171 H C-React Prot Ext Range Total Protein 7.5 Albumin 1.9 L Globulin 5.6 H Albumin/Globulin Ratio 0.3 L Prealbumin Lipase 144 Vancomycin Trough Hep Bs Antigen Pending Hep B Core Total Ab Pending HCV RNA Quant (PCR) Pending HIV 1&2 Antibody 02/09/18 02/09/18 02/10/18 11:54 18:40 04:00 WBC 8.5 RBC 3.96 L Hgb 12.9 L Hct 38.5 L MCV 97.2 H MCH 32.6 H MCHC 33.5 RDW 11.6 RDW Differential 40.2 Plt Count 201 MPV 10.0 Immature Gran % (Auto) 0.400 Neut % (Auto) 65.4 Lymph % (Auto) 21.2 [place] % (Auto) 10.5 H Eos % (Auto) 2.3 Baso % (Auto) 0.2 Absolute Neuts (auto) 5.6 Absolute Lymphs (auto) 1.81 Total Counted Not Reportable ESR 58 H APTT Sodium Potassium Chloride Carbon Dioxide Anion Gap BUN Creatinine Estim Creat Clear Calc Est GFR (MDRD) Af Amer Est GFR (MDRD) Non-Af BUN/Creatinine Ratio Glucose Calcium Total Bilirubin Direct Bilirubin AST ALT Alkaline Phosphatase C-React Prot Ext Range Total Protein Albumin Globulin Albumin/Globulin Ratio Prealbumin Lipase Vancomycin Trough 29.3 H Hep Bs Antigen Hep B Core Total Ab HCV RNA Quant (PCR) HIV 1&2 Antibody Non-Reactive 02/10/18 02/10/18 04:00 04:00 WBC RBC Hgb Hct MCV MCH MCHC RDW RDW Differential Plt Count MPV Immature Gran % (Auto) Neut % (Auto) Lymph % (Auto) [place] % (Auto) Eos % (Auto) Baso % (Auto) Absolute Neuts (auto) Absolute Lymphs (auto) Total Counted ESR APTT 29.3 Sodium 139 Potassium 3.5 Chloride 106 Carbon Dioxide 26.0 Anion Gap 7 BUN 13 Creatinine 0.76 Estim Creat Clear Calc 128.17 Est GFR (MDRD) Af Amer 137 Est GFR (MDRD) Non-Af 113 BUN/Creatinine Ratio 17.2 Glucose 114 H Calcium 7.9 L Total Bilirubin 0.70 Direct Bilirubin 0.50 H AST 43 H ALT 28 Alkaline Phosphatase 158 H C-React Prot Ext Range 62.30 H Total Protein 7.2 Albumin 1.9 L Globulin 5.3 H Albumin/Globulin Ratio 0.4 L Prealbumin 5.1 L Lipase Vancomycin Trough Hep Bs Antigen Hep B Core Total Ab HCV RNA Quant (PCR) HIV 1&2 Antibody Microbiology 02/09/18 11:54 Blood Culture (Wb) - Line Draw Blood Culture - Preliminary 02/08/18 09:50 Wound - Leg, Left Gram Stain - Final 02/08/18 09:50 Wound - Leg, Left Wound Culture - Preliminary Staphylococcus aureus Gram negative susan 02/08/18 09:50 Urine, Clean Catch Urine Culture - Preliminary Mixed Gram Positive Organisms 02/08/18 10:40 Blood Culture (Wb) - Left Hand Bacteria Detection (PCR) - Final Meth. resistant Staph. aureus 02/08/18 10:40 Blood Culture (Wb) - Left Hand Blood Culture - Preliminary Meth. resistant Staph. aureus Medical Necessity - Tobacco Use Smoking Status: Current every day smoker Tobacco Use: Cigarettes Assessment/Plan All Active Problems Skin necrosis (Acute) Abscess of left leg (Acute) Sepsis (Acute) MRSA bacteremia (Acute) This is a 57 years old male patient presented to the emergency department because of left-sided abdominal pain, found to have left lower leg nonhealing, infected gangrenous ulcer with sepsis and MRSA bacteremia. #1 acute left medial leg MRSA infected/necrotic ulcer/surrounding cellulitis: He is on IV vancomycin and Zosyn. Vital signs are stable, afebrile. White blood cell count is back to normal. Wound culture revealed staph aureus and gram-negative rods, final is pending. Blood culture revealed MRSA. Plastic surgery consulted, plan for incision excisional debridement. Infectious disease on the case. Plan to continue same treatment. #2 sepsis: Secondary to above. He is on IV antibiotics. Cultures reviewed as above. Lactic acid was normal. Vital signs are stable. #3 MRSA bacteremia: Likely source is the left lower extremity gangrenous ulcer/wound. He is already on IV vancomycin, plan as above. #4 left sided abdominal pain: Unclear etiology. Today, patient mentioned that this pain started only the day when he came in the emergency department. His pain is not getting any better. CT scan abdomen and pelvis without contrast revealed hepatosplenomegaly, otherwise no acute findings. His total bilirubin is back to normal, liver transaminases are trending down as well as alkaline phosphatase. Lipase was normal. Plan: CT scan abdomen and pelvis with oral and IV contrast. #5 hypocalcemia: He received IV calcium gluconate. Today's serum calcium 7.9, serum albumin is 1.9. Corrected calcium for albumin is 9.6 mg/dL, normal. #6 hypertension: Blood pressure has been fluctuating, highest was 182/90 and lowest was 102/55. Plan for now is monitoring, may need to start him on antihypertensive medications. #7 hepatitis C: Hepatitis C serology sent. #8 drug abuse: Recently, patient was admitted for opioid withdrawal. He stated that his last dose of heroin was about 3 weeks ago. #9 DVT prophylaxis: Subcu heparin. This note was generated with [employer] software. It may contain incorrect words, spelling, and punctuation that were not noted in checking the note before signing. Code Visit Inpatient E&M: 24590 Subs Hosp L2
[2018-02-10 08:46] LABS: Vancomycin, Trough Level 38.6 ug/mL (5.0-15.0)
--- NOTE | 2018-02-10 09:09 | NURSING ---
PT ASKING FOR WATER. EXPLAINED MUST REMAIN NPO FOR OR. CAN I GET A BITE OF JELLO?, AGAIN EXPLAINED NEED FOR NPO. WELL THEY GAVE ME STUFF LAST TIME
--- NOTE | 2018-02-10 09:19 | PHA.PHARE_ITS ---
Consult Pharmacy has been consulted to manage selected antiobiotic: Vancomycin Type of Consult: Follow-up Suspected Infection: Bacteremia Prior Doses of Antibiotics Received/Current Regimen: VANCOMYCIN 1750MG IV Q12HRS: 02/09 @1805, 02/10 @0600 Labs: Sodium 139 mmol/L (136-145) 02/10/18 04:00 Potassium 3.5 mmol/L (3.5-5.1) 02/10/18 04:00 Chloride 106 mmol/L (98-107) 02/10/18 04:00 Carbon Dioxide 26.0 mmol/L (21.0-32.0) 02/10/18 04:00 Anion Gap 7 (5-15) 02/10/18 04:00 BUN 13 mg/dL (7-18) 02/10/18 04:00 Creatinine 0.76 mg/dL (0.70-1.30) 02/10/18 04:00 Est GFR (MDRD) Af Amer 137 mL/min (>60) 02/10/18 04:00 Est GFR (MDRD) Non-Af 113 mL/min (>60) 02/10/18 04:00 BUN/Creatinine Ratio 17.2 RATIO (10-20) 02/10/18 04:00 Glucose 114 mg/dL (74-106) H 02/10/18 04:00 Vancomycin Trough 38.6 ug/mL (5.0-15.0) H 02/10/18 08:06 Microbiology: Microbiology 02/08/18 10:40 Blood Culture (Wb) - Left Hand Bacteria Detection (PCR) - Final Meth. resistant Staph. aureus 02/08/18 10:40 Blood Culture (Wb) - Left Hand Blood Culture - Final Meth. resistant Staph. aureus 02/09/18 11:54 Blood Culture (Wb) - Line Draw Blood Culture - Preliminary Goal Trough: 15-20 mcg/mL Pharmacy Plan for Drug Dosing: The patient had a trough drawn 02/09 @1840, which resulted in a value of 29.3 ( drawn while medication was being administered). Another trough was drawn this morning 02/10 @0806 which resulted in a value of 38.6; however the administration record shows the patient's morning dose was administered at 0600 (vancomycin trough drawn after medication was done infusing). Based on administration criteria, it is likely the troughs are falsely high since they were both drawn once the vancomycin was already running. Will plan on drawing another trough prior to the next dose (02/10 @1900), and notify nursing to not administer dose until after lab has drawn the trough. Will re-evaluate when a true trough is drawn. PLAN/RECOMMENDATIONS 1. Trough scheduled for 02/10 @1830, prior to next vancomycin administration 2. Will re-evaluate vancomycin dosing. For now, continue vancomycin 1750mg IV Q12hrs 3. Pharmacy Service will continue to monitor and adjust dosing as required.
--- NOTE | 2018-02-10 12:31 | NURSING ---
PT TO AC VIA BED. REPORT CALLED TO OMARI CLIFTON.
--- NOTE | 2018-02-10 16:04 | PCM.IMDPSTOP ---
Immediate Post-Op Note Date of Procedure: 02/10/18 Primary Surgeon/Physician: Pj Kulkarni librarian special collections: None Pre-Operative Diagnosis: 1. Nonhealing infected necrotic MRSA ulcer left medial leg. 2. MRSA bacteremic sepsis. 3. History of IV drug use. 4. Smoker. Post-Operative Diagnosis: Same. Surgery/Procedure Performed:: Surgical preparation left medial leg with incision and drainage and excisional debridement infected necrotic MRSA ulcer (280 cm2). Description of Surgical Findings:: The patient is a 57 year old M with past medical history of heroin abuse was admitted for abdominal pain. It was noted also that he had a nonhealing infected ulcer left medial leg with malodor. He doesn't know how long the ulcer has been present. In the ED, WBC was 17. This morning it had decreased to 11. Blood cultures showed MRSA. Lactate was 1.6. CT Abdomen showed no intra-abdominal pathology. CT Left leg showed skin thickening and edema. No definite abscess seen. He was started on IV Vancomycin and Zosyn. The patient denies use of heroin recently. He states his last use was about a month ago. His tox screen in the ED was positive for opiates. Today the patient underwent surgical preparation left medial leg with incision and drainage and excisional debridement infected necrotic MRSA ulcer (280 cm2). Size of defect left medial leg - 28 x 10 x 1 cm. Estimated Blood Loss: 50 ml. Specimen's removed: Left medial leg infected ulcer to Pathology and Microbiology. Drains: None. Type of Anesthesia:: General - Admit VTE Documentation VTE Present on Admission: No VTE Mechan Device Prophylaxis: SCD's VTE Pharm Prophylaxis ordered?: Yes
--- NOTE | 2018-02-10 16:10 | OP.PN_ITS ---
Immediate Post-Op Note Date of Procedure: 02/10/18 Primary Surgeon/Physician: Pj Kulkarni nutritionalist: None Pre-Operative Diagnosis: 1. Nonhealing infected necrotic MRSA ulcer left medial leg. 2. MRSA bacteremic sepsis. 3. History of IV drug use. 4. Smoker. Post-Operative Diagnosis: Same. Surgery/Procedure Performed:: Surgical preparation left medial leg with incision and drainage and excisional debridement infected necrotic MRSA ulcer ( 280 cm2). Description of Surgical Findings:: The patient is a 57 year old M with past medical history of heroin abuse was admitted for abdominal pain. It was noted also that he had a nonhealing infected ulcer left medial leg with malodor. He doesn't know how long the ulcer has been present. In the ED, WBC was 17. This morning it had decreased to 11. Blood cultures showed MRSA. Lactate was 1.6. CT Abdomen showed no intra-abdominal pathology. CT Left leg showed skin thickening and edema. No definite abscess seen. He was started on IV Vancomycin and Zosyn. The patient denies use of heroin recently. He states his last use was about a month ago. His tox screen in the ED was positive for opiates. Today the patient underwent surgical preparation left medial leg with incision and drainage and excisional debridement infected necrotic MRSA ulcer (280 cm2). Size of defect left medial leg - 28 x 10 x 1 cm. Estimated Blood Loss: 50 ml. Specimen's removed: Left medial leg infected ulcer to Pathology and Microbiology. Drains: None. Type of Anesthesia:: General - Admit VTE Documentation VTE Present on Admission: No VTE Mechan Device Prophylaxis: SCD's VTE Pharm Prophylaxis ordered?: Yes
--- NOTE | 2018-02-10 19:07 | PCM.OPRPT ---
Report of Operation Date of Procedure: 02/10/18 Pre-Operative Diagnosis: 1. Nonhealing infected necrotic MRSA ulcer left medial leg. 2. MRSA bacteremic sepsis. 3. History of IV drug use. 4. Smoker. Post-Operative Diagnosis: Same. Surgery/Procedure Performed:: Surgical preparation left medial leg with incision and drainage and excisional debridement infected necrotic MRSA ulcer (280 cm2). Description of Surgical Findings:: The patient is a 57 year old M with past medical history of heroin abuse was admitted for abdominal pain. It was noted also that he had a nonhealing infected ulcer left medial leg with malodor. He doesn't know how long the ulcer has been present. In the ED, WBC was 17. This morning it had decreased to 11. Blood cultures showed MRSA. Lactate was 1.6. CT Abdomen showed no intra-abdominal pathology. CT Left leg showed skin thickening and edema. No definite abscess seen. He was started on IV Vancomycin and Zosyn. The patient denies use of heroin recently. He states his last use was about a month ago. His tox screen in the ED was positive for opiates. Patient was informed of the risks and complications of the procedure including alternatives to surgery. These were discussed with the patient personally. Patient voices understanding and wishes to proceed. Encouraged patient to stop smoking as it may have deleterious effects on wound healing. Size of defect left medial leg - 28 x 10 x 1 cm. institution librarian: None Type of Anesthesia:: General Specimen's removed: Left medial leg infected ulcer to Pathology and Microbiology. Drains: None. Estimated Blood Loss (mL): 50 ml. Description of Procedure: Patient was taken to OR in supine position and was placed under general anesthesia. His left leg was prepped and draped in the usual fashion. SCD's were placed on the right leg for DVT prophylaxis. Perioperative antibiotics were given intravenously. Using xylocaine with epinephrine, I infiltrated the necrotic ulcer. After waiting 5 minutes for the anesthetic to take effect, I proceeded with incision and drainage around the necrotic ulcer left medial leg. The skin was very indurated. Incision was carried down through the subcutaneous tissue until the muscular fascia was seen. The fascia was inflamed and edematous but appeared viable. A lot of fat necrosis was present that was sharply debrided and excised. Small amount of pus was seen which appeared thickened. The nonviable skin and necrotic ulcerations were also sharply debrided and excised. The tissue was sent to Pathology for analysis and to Microbiology for culture. A positive culture may necessitate antibiotic modification. Hemostasis was obtained with electrocautery. The wound was irrigated with saline. The size of the defect left medial leg after the incision and drainage and excisional debridement was 28 x 10 x 1 cm. The wound was then packed with Mepitel nonadherent dressing followed by Kerlix gauze soaked in Betadine. This was followed by a dry Kerlix gauze and ABD pads and an GEETHA wrap to complete the compression dressing. Patient tolerated the procedure well and was sent to PACU in satisfactory condition. He will be sent back upstairs for continued postop care. Will place the VAC tomorrow. Anticipate increased metabolic demands from the infection and from the wound. Will check a Prealbumin and encourage nutritional supplementation with protein to help the healing process. After discharge, may followup at the [facility]. If there is a plateau in the healing process, can proceed with delayed closure with skin grafting. Grafts/Implants Used: None. - Complications None. - Admit VTE Documentation VTE Present on Admission: No VTE Mechan Device Prophylaxis: SCD's VTE Pharm Prophylaxis ordered?: Yes Code Visit Surgery Charges CPT - 76814 ICD-10 - L97.925, L02.416, I96, R78.81, A41.9, Z87.898, F17.200 [id number] L97.925, L02.416, I96, R78.81, A41.9, Z87.898, F17.200 82325 L97.925, L02.416, I96, R78.81, A41.9, Z87.898, F17.200 66227 L97.925, L02.416, I96, R78.81, A41.9, Z87.898, F17.200
--- NOTE | 2018-02-10 19:48 | NURSING ---
Pt drank remaining contrast. Small report called to radiology, made aware of contact precautions. COSMETICIAN APPRENTICE took pt to radiology at this time.
[2018-02-10 19:56] LABS: Vancomycin, Trough Level 12.7 ug/mL (5.0-15.0)
[2018-02-10 20:07] LABS: HCV Quant. RNA PCR 1010000 IU/mL (.); HEPATITIS B SURFACE AG Negative (Negative)
--- NOTE | 2018-02-10 20:25 | PCM.RX.CS ---
Consult Pharmacy has been consulted to manage selected antiobiotic: Vancomycin Type of Consult: Follow-up Suspected Infection: Bacteremia Prior Doses of Antibiotics Received/Current Regimen: VANCOMYCIN 1750MG IV GIVEN AT 06:00 AND 18:47 TODAY 02/10/18 Labs: Sodium 139 mmol/L (136-145) 02/10/18 04:00 Potassium 3.5 mmol/L (3.5-5.1) 02/10/18 04:00 Chloride 106 mmol/L (98-107) 02/10/18 04:00 Carbon Dioxide 26.0 mmol/L (21.0-32.0) 02/10/18 04:00 Anion Gap 7 (5-15) 02/10/18 04:00 BUN 13 mg/dL (7-18) 02/10/18 04:00 Creatinine 0.76 mg/dL (0.70-1.30) 02/10/18 04:00 Est GFR (MDRD) Af Amer 137 mL/min (>60) 02/10/18 04:00 Est GFR (MDRD) Non-Af 113 mL/min (>60) 02/10/18 04:00 BUN/Creatinine Ratio 17.2 RATIO (10-20) 02/10/18 04:00 Glucose 114 mg/dL (74-106) H 02/10/18 04:00 Vancomycin Trough 12.7 ug/mL (5.0-15.0) 02/10/18 18:42 Microbiology: Microbiology 02/08/18 10:40 Blood Culture (Wb) - Left Hand Bacteria Detection (PCR) - Final Meth. resistant Staph. aureus 02/08/18 10:40 Blood Culture (Wb) - Left Hand Blood Culture - Final Meth. resistant Staph. aureus 02/09/18 11:54 Blood Culture (Wb) - Line Draw Blood Culture - Preliminary Goal Trough: 15-20 mcg/mL Pharmacy Plan for Drug Dosing: Trough was drawn today at 18:42 and resulted in a level of 12.7. It was taken correctly this time at about 12.5 hours after the previous dose was given and before the next dose was started. Since the goal trough is 15-20, the plan is to increase the dose to 2000mg IV q12h and obtain another trough before the 4th dose. Pharmacy Service will continue to monitor and adjust dosing as required. Follow-Up Labs: Trough Vancomycin Labs to be done on [date and time ordered]: 02/12/18 at 18:30
[2018-02-10] MEDS: oxyCODONE 5 MG Tablet 10 MG PO (20:57)
[2018-02-10] MEDS: metroNIDAZOLE 500 MG Tablet PO (20:58)
--- NOTE | 2018-02-10 23:55 | NURSING ---
Patient called out and asked for CRYSTAL GROWER to unlock his cigarettes from his med drawer, stated that he wanted to sneak one and then stated he just wanted to give them to his significant other. That CRYSTAL GROWER came to this RN about the situation. This RN discussed with patient and significant other that smoking was not allowed at this hospital and the patient stated he was joking and that he didn't really want to sneak one. The patient then asked if he was able to go outside to smoke. This RN explained that that was not allowed either. The patient stated he was OK with his significant other, Juve, taking his cigarettes and fulfillment mail clerk with him when he left. This RN waited until the visitor was ready to leave and gave him the cigarettes and fulfillment mail clerk at that time.
[2018-02-11] VITALS (10 sets, daily range): BP systolic 150–181; BP diastolic 75–90; PULSE 62–74; RESP 18–20; TEMP 36.9–37.3; O2SAT 95–100
[2018-02-11] MEDS: HYDROmorphone 1 MG/ML Syringe IV ×6 (03:15→23:40)
[2018-02-11] MEDS: 0.9% NaCl Peripheral Flush Adult/Peds IV ×9 (05:12→23:40)
[2018-02-11 05:39] LABS: Hematocrit 34.1 % (40-54); Hemoglobin 11.8 g/dl (13.0-16.5); Mean Corp Hgb Conc 34.6 g/gl (32-36); Mean Corpuscular Hgb 33.5 pg (27.0-32.0); Mean Corpuscular Volume 96.9 fL (80-94); Mean Platelet Vol. 9.9 fl (6.2-12.0); Platelet Count 225 K/mm3 (150-450); RBC Distribution Width CV 11.4 % (11.6-14.6); RBC Distribution Width SD 39.2 fl (35.1-43.9); Red Blood Count 3.52 M/mm3 (4.6-6.2); White Blood Count 7.2 K/mm3 (4.4-11.0)
[2018-02-11 05:50] LABS: Anion Gap 7 (5-15); BUN 10 mg/dL (7-18); BUN/Creat Ratio 14.4 RATIO (10-20); Calcium,Total 7.8 mg/dL (8.5-10.1); Chloride 104 mmol/L (98-107); Creatinine, Serum 0.69 mg/dL (0.70-1.30); EST Glomerular Filtration Rate 125 mL/min (>60); Est Glom Filt Rate - Afr Amer 151 mL/min (>60); Estimated Creatinine Clearance 141.17 ml/min; Glucose 107 mg/dL (74-106); Potassium 3.5 mmol/L (3.5-5.1); Sodium Level 138 mmol/L (136-145)
[2018-02-11 06:07] LABS: Scan Indicated on CBC? Y/N NO
[2018-02-11] MEDS: 0.9% Normal Saline 1,000 ML 75 ML IV (06:47)
--- NOTE | 2018-02-11 07:59 | CT_ITS ---
STUDY: CT CHEST WITHOUT CONTRAST REASON FOR EXAM: Male, 57 years old. Sepsis. RADIATION DOSAGE (If Supplied By Facility): CTDIvol = ( 20.15 ) mGy, DLP = ( 750.19 ) mGycm TECHNIQUE: Transaxial imaging was performed without the administration of intravenous contrast material. Sagittal/coronal reconstructions. Individualized dose optimization techniques were used for this CT. COMPARISON: No prior CT chest imaging available. Correlation CT abdomen and pelvis 02/10/2018. FINDINGS: Bilingual Inside Sales Representative scanogram imaging shows a right PICC line. Axial images show inferior tip of the PICC line within the SVC near the atrial caval junction. Lungs appear fairly well expanded and show numerous variable sized noncalcified pulmonary and subpleural nodules, cannot exclude neoplasm/metastasis with the largest in the right upper lobe posterior segment approximate 1.05 cm diameter image #37/130 series #4. Right lower lobe superior segment posterior medial subpleural thickening approximate 0.7 x 1.6 cm is noted image #51/130 but also extends inferior medially into the base where some subtle atelectasis/scarring seen within curvilinear opacity image #100/130. Approximate 0.8 cm diameter right upper lobe posterior segment noncalcified nodule noted image #46/130. Tiny right middle lobe anterolateral subpleural noncalcified nodule is approximately 0.47 cm diameter. Right lower lobe medial basal segment supradiaphragmatically 2 nodules are seen, largest is approximate 0.6 cm diameter image #90/130 and slightly more inferior and medial noncalcified nodule is approximate 0.4 cm diameter image #92/130. Left lung shows consolidative changes in the left base posterior laterally with small pleural effusion associated may represent consolidative pneumonia and/or compressive atelectasis appears unchanged since CT on pelvis study 02/11/2018 but was not seen to the same extent with CT study 02/08/2018. Left lung base posterior pleural fluid tracks superiorly and posterior medially to the level of the great vessels. Narrowing and termination is seen of left lower lobe posterior lateral segment airways mostly posteriorly with postobstructive atelectasis just anterior to the pleural effusion with possible mucous plugging but cannot exclude endobronchial lesion. Moderate centrilobular emphysema is changes suggested, predominantly upper lobes. Normal size heart and pericardium. Moderate left coronary artery LAD branch calcification. Tiny nonspecific anterior pericardial lymph node is approximate 0.9 x 1.0 cm. Numerous biaxillary lymph nodes are seen, largest is noted in the left axilla, approximate 1.3 x 2.0 cm, borderline adenopathy which may be reactive or metastatic image #42/130. Multiple mediastinal lymph nodes are seen, largest is noted in the subcarinal region, proximal 1.4 x 1.8 cm, nonspecific. Without IV contrast, is difficult to evaluate the leandra for adenopathy. Mildly enlarged pulmonary arteries suggested, may represent pulmonary arterial hypertension the appropriate clinical setting. Ectasia is suggested aortic root and descending thoracic aorta measuring approximate 4 cm diameter image #51/130 and mild aneurysm is seen of the descending thoracic aorta, approximate 3.5 cm diameter same image. Thyroid is incompletely seen in the visualized portion appears bilaterally symmetric and moderately enlarged. No esophageal large gross bulky lesion identified. Visualized bones show left posterior lateral fourth rib rounded homogeneous high attenuation area within the rib approximate 0.7 cm diameter, may represent a bone island but osseous metastasis is not entirely excluded. Mild anterior vertebral body loss of height and wedging is seen approximate T11, unchanged which may represent an old compression fracture. Nonacute appearing visualized upper abdomen. Tiny round smooth margin soft tissue attenuated nodule seen anterior to the right anterolateral liver, may represent old nonspecific lymph node proximal 0.8 x 0.9 cm image #99/130 series #2. CT/Chest without Contrast IMPRESSION: Multiple variable size right lung noncalcified pulmonary and subpleural nodules, cannot exclude neoplasm/metastasis. If clinically indicated, recommend PET/CT scan for further evaluation exclude neoplasm/metastasis. Left lung base posterior lateral consolidation changes and pleural effusion, most likely represents pneumonia but cannot exclude underlying neoplasm/metastasis. Recommend follow-up CT chest 2-4 weeks after treatment to demonstrate complete clearing. Numerous moderately enlarged lymph nodes, borderline adenopathy most likely reactive but cannot exclude metastatic etiology. Clinical correlation follow-up recommended. No large gross bulky adenopathy identified with above limitations. Mild descending thoracic aortic aneurysm 3.5 cm diameter. Bone tiny bone island versus a osseous metastasis left posterior lateral fourth rib. Again, PET/CT scan helpful to exclude osseous metastasis. Borderline anterior wedge compression fracture T11, appears old and unchanged since CT study 02/08/2018. Clinical correlation recommended. Limitations above. Electronically Signed: Con Quispe, at 11:47 EDT Tel , Service support ,
--- NOTE | 2018-02-11 08:02 | PCM.PROGNOTE ---
Patient Problems: Active and Suspected Problems Sepsis (Acute) MRSA bacteremia (Acute) Subjective: Chief complaint: Follow-up after admission for nonhealing MRSA infected necrotic ulcer/surrounding cellulitis of the left medial leg and MRSA bacteremia. Patient seen and examined. No acute events overnight. This morning, he complained that the bandage on the left leg is too tight. Pain on the left leg is not controlled at this time. He is receiving IV Dilaudid at this time. He still complaining of left upper quadrant discomfort region pain. No nausea or vomiting. Pain worse when he takes a deep breath. CT scan abdomen revealed probable left lower lobe pneumonia. His vital signs stable. - Physical Exam General: Alert, Oriented x3, Cooperative, No apparent distress HEENT: Atraumatic, PERRLA, EOMI, Normocephalic Oral: Moist Mucosa, No Gingival or Mucosal Lesions/ Ulcerations Neck: Supple, No JVD, Negative Carotid Bruits, Trachea Midline, Thyroid Normal Size and Texture Lungs: Clear to auscultation, No rhonchi, No wheeze, No rales, Diminished Cardiovascular: Regular rate, Regular Rhythm, Normal S1, Normal S2, No murmurs, PMI Normal Abdomen: Bowel Sounds Present, Soft, Non-Distended, No Hepato-splenomegaly, Tender - Minimal tenderness in the left side. Extremities: No clubbing, No cyanosis, No edema Skin: No rashes, Ulcer/ Wound Lymphatic: No Cervical, Supraclavicular, or Inguinal Adenopathy Neurological: Cranial nerves II-XII grossly intact, Motor Exam 5/5 strength throughout Psych/Mental Status: Normal Affect, Appropriate, Alert and oriented to time, place, person, mood and affect Vital Signs Temp Pulse Resp BP Pulse Ox 99.2 F H 62 20 H 150/77 H 96 02/11/18 02:30 02/11/18 04:04 02/11/18 02:30 02/11/18 02:30 02/11/18 02:30 Oxygen Flow Rate (L/min) 2 Oxygen Delivery Method Room Air Weight: 300 lb 0.786 oz Body Mass Index (BMI) 37.5 Intake and Output for Last 24 Hours 02/09/18 02/10/18 02/11/18 23:59 23:59 23:59 Intake Total 3186.9 / 3186.9 3159 / 3159 2356 / 2356 Output Total 1200 / 1200 1375 / 1375 3175 / 3175 Balance 1986.9 / 1986.9 1784 / 1784 -819 / -819 Microbiology Past 72 Hours 02/08/18 10:40 Bacteria Detection (PCR) - Final Blood Culture (Wb) - Left Hand Meth. resistant Staph. aureus Blood Culture - Final Meth. resistant Staph. aureus 02/09/18 11:54 Blood Culture - Preliminary Blood Culture (Wb) - Line Draw Laboratory Tests Past 24 Hrs 02/10/18 02/10/18 02/11/18 08:06 18:42 05:10 WBC 7.2 RBC 3.52 L Hgb 11.8 L Hct 34.1 L MCV 96.9 H MCH 33.5 H MCHC 34.6 RDW 11.4 L RDW Differential 39.2 Plt Count 225 MPV 9.9 Sodium Potassium Chloride Carbon Dioxide Anion Gap BUN Creatinine Estim Creat Clear Calc Est GFR (MDRD) Af Amer Est GFR (MDRD) Non-Af BUN/Creatinine Ratio Glucose Calcium Vancomycin Trough 38.6 H 12.7 02/11/18 05:10 WBC RBC Hgb Hct MCV MCH MCHC RDW RDW Differential Plt Count MPV Sodium 138 Potassium 3.5 Chloride 104 Carbon Dioxide 27.0 Anion Gap 7 BUN 10 Creatinine 0.69 L Estim Creat Clear Calc 141.17 Est GFR (MDRD) Af Amer 151 Est GFR (MDRD) Non-Af 125 BUN/Creatinine Ratio 14.4 Glucose 107 H Calcium 7.8 L Vancomycin Trough Clinical Impression(s) from Imaging Studies Abdomen/Pelvis CT 02/10/18 07:36 IMPRESSION: Stable right upper pole renal basilar atelectasis. Left lower lung infiltrate not excluded. No acute abdominal or pelvic findings. Electronically Signed: Jaime Dennis DO at 20:41 EDT , Service support , Medical Necessity - Tobacco Use Smoking Status: Current every day smoker Tobacco Use: Cigarettes Assessment/Plan All Active Problems Skin necrosis (Acute) Abscess of left leg (Acute) Sepsis (Acute) MRSA bacteremia (Acute) This is a 57 years old male patient presented to the emergency department because of left-sided abdominal pain, found to have left lower leg nonhealing, infected gangrenous ulcer with sepsis and MRSA bacteremia. #1 acute left medial leg MRSA infected/necrotic ulcer/surrounding cellulitis: Status post surgery, operative report is pending, postoperative day 1. He is on IV vancomycin and Rocephin. Vital signs are stable, afebrile. White blood cell count is back to normal. Wound culture revealed MRSA and E. coli. Blood culture revealed MRSA. Culture of the operative specimen is pending. Plastic surgery and infectious disease in the case. Plan to continue same treatment. #2 sepsis: Secondary to above. He is on IV antibiotics. Cultures reviewed as above. Lactic acid was normal. Vital signs are stable. #3 MRSA bacteremia: Likely source is the left lower extremity gangrenous ulcer/wound. Initial blood culture revealed MRSA. Repeat blood culture also showed gram-positive cocci, final is pending. He is already on IV vancomycin and Rocephin. Transthoracic 2D echocardiogram revealed ejection fraction 65%, RVSP of 31, no vegetations. Plan to continue same treatment. #4 left sided abdominal pain: Unclear etiology. CT scan abdomen and pelvis with contrast performed yesterday and revealed no acute abdominopelvic findings, revealed small left pleural effusion and left lower lung infiltrate cannot be excluded. Patient mentioned that his pain worsen when he takes a deep breath, complaint of cough with sputum. He is already on IV antibiotics. Plan: CT scan chest without contrast, sputum culture, continue antibiotics as well. #5 hypocalcemia: He received IV calcium gluconate. Today's serum calcium 7.8, corrected calcium is normal. #6 hypertension: Upon review of his blood pressure readings, his pressure has been always in the 142/50 systolic, sometimes up to up to 170s. Plan: We will start him on Norvasc. #7 hepatitis C: Hepatitis serology sent and pending. HIV 1 and 2 antibodies are negative. #8 drug abuse: Recently, patient was admitted for opioid withdrawal. He stated that his last dose of heroin was about 3 weeks ago. #9 DVT prophylaxis: Subcu heparin. This note was generated with [employer] software. It may contain incorrect words, spelling, and punctuation that were not noted in checking the note before signing. Code Visit Inpatient E&M: 26949 Subs Hosp L2
--- NOTE | 2018-02-11 08:10 | PN_ITS ---
Patient Problems: Active and Suspected Problems Sepsis (Acute) MRSA bacteremia (Acute) Subjective: Chief complaint: Follow-up after admission for nonhealing MRSA infected necrotic ulcer/surrounding cellulitis of the left medial leg and MRSA bacteremia. Patient seen and examined. No acute events overnight. This morning, he complained that the bandage on the left leg is too tight. Pain on the left leg is not controlled at this time. He is receiving IV Dilaudid at this time. He still complaining of left upper quadrant discomfort region pain. No nausea or vomiting. Pain worse when he takes a deep breath. CT scan abdomen revealed probable left lower lobe pneumonia. His vital signs stable. - Physical Exam General: Alert, Oriented x3, Cooperative, No apparent distress HEENT: Atraumatic, PERRLA, EOMI, Normocephalic Oral: Moist Mucosa, No Gingival or Mucosal Lesions/ Ulcerations Neck: Supple, No JVD, Negative Carotid Bruits, Trachea Midline, Thyroid Normal Size and Texture Lungs: Clear to auscultation, No rhonchi, No wheeze, No rales, Diminished Cardiovascular: Regular rate, Regular Rhythm, Normal S1, Normal S2, No murmurs, PMI Normal Abdomen: Bowel Sounds Present, Soft, Non-Distended, No Hepato-splenomegaly, Tender - Minimal tenderness in the left side. Extremities: No clubbing, No cyanosis, No edema Skin: No rashes, Ulcer/ Wound Lymphatic: No Cervical, Supraclavicular, or Inguinal Adenopathy Neurological: Cranial nerves II-XII grossly intact, Motor Exam 5/5 strength throughout Psych/Mental Status: Normal Affect, Appropriate, Alert and oriented to time, place, person, mood and affect Vital Signs Temp Pulse Resp BP Pulse Ox 99.2 F H 62 20 H 150/77 H 96 02/11/18 02:30 02/11/18 04:04 02/11/18 02:30 02/11/18 02:30 02/11/18 02:30 Oxygen Flow Rate (L/min) 2 Oxygen Delivery Method Room Air Weight: 300 lb 0.786 oz Body Mass Index (BMI) 37.5 Intake and Output for Last 24 Hours 02/09/18 02/10/18 02/11/18 23:59 23:59 23:59 Intake Total 3186.9 / 3186.9 3159 / 3159 2356 / 2356 Output Total 1200 / 1200 1375 / 1375 3175 / 3175 Balance 1986.9 / 1986.9 1784 / 1784 -819 / -819 Microbiology Past 72 Hours 02/08/18 10:40 Bacteria Detection (PCR) - Final Blood Culture (Wb) - Left Hand Meth. resistant Staph. aureus Blood Culture - Final Meth. resistant Staph. aureus 02/09/18 11:54 Blood Culture - Preliminary Blood Culture (Wb) - Line Draw Laboratory Tests Past 24 Hrs 02/10/18 02/10/18 02/11/18 08:06 18:42 05:10 WBC 7.2 RBC 3.52 L Hgb 11.8 L Hct 34.1 L MCV 96.9 H MCH 33.5 H MCHC 34.6 RDW 11.4 L RDW Differential 39.2 Plt Count 225 MPV 9.9 Sodium Potassium Chloride Carbon Dioxide Anion Gap BUN Creatinine Estim Creat Clear Calc Est GFR (MDRD) Af Amer Est GFR (MDRD) Non-Af BUN/Creatinine Ratio Glucose Calcium Vancomycin Trough 38.6 H 12.7 02/11/18 05:10 WBC RBC Hgb Hct MCV MCH MCHC RDW RDW Differential Plt Count MPV Sodium 138 Potassium 3.5 Chloride 104 Carbon Dioxide 27.0 Anion Gap 7 BUN 10 Creatinine 0.69 L Estim Creat Clear Calc 141.17 Est GFR (MDRD) Af Amer 151 Est GFR (MDRD) Non-Af 125 BUN/Creatinine Ratio 14.4 Glucose 107 H Calcium 7.8 L Vancomycin Trough Clinical Impression(s) from Imaging Studies Abdomen/Pelvis CT 02/10/18 07:36 IMPRESSION: Stable right upper pole renal basilar atelectasis. Left lower lung infiltrate not excluded. No acute abdominal or pelvic findings. Electronically Signed: Jaime Dennis DO at 20:41 EDT , Service support , Medical Necessity - Tobacco Use Smoking Status: Current every day smoker Tobacco Use: Cigarettes Assessment/Plan All Active Problems Skin necrosis (Acute) Abscess of left leg (Acute) Sepsis (Acute) MRSA bacteremia (Acute) This is a 57 years old male patient presented to the emergency department because of left-sided abdominal pain, found to have left lower leg nonhealing, infected gangrenous ulcer with sepsis and MRSA bacteremia. #1 acute left medial leg MRSA infected/necrotic ulcer/surrounding cellulitis: Status post surgery, operative report is pending, postoperative day 1. He is on IV vancomycin and Rocephin. Vital signs are stable, afebrile. White blood cell count is back to normal. Wound culture revealed MRSA and E. coli. Blood culture revealed MRSA. Culture of the operative specimen is pending. Plastic surgery and infectious disease in the case. Plan to continue same treatment. #2 sepsis: Secondary to above. He is on IV antibiotics. Cultures reviewed as above. Lactic acid was normal. Vital signs are stable. #3 MRSA bacteremia: Likely source is the left lower extremity gangrenous ulcer/ wound. Initial blood culture revealed MRSA. Repeat blood culture also showed gram-positive cocci, final is pending. He is already on IV vancomycin and Rocephin. Transthoracic 2D echocardiogram revealed ejection fraction 65%, RVSP of 31, no vegetations. Plan to continue same treatment. #4 left sided abdominal pain: Unclear etiology. CT scan abdomen and pelvis with contrast performed yesterday and revealed no acute abdominopelvic findings , revealed small left pleural effusion and left lower lung infiltrate cannot be excluded. Patient mentioned that his pain worsen when he takes a deep breath, complaint of cough with sputum. He is already on IV antibiotics. Plan: CT scan chest without contrast, sputum culture, continue antibiotics as well. #5 hypocalcemia: He received IV calcium gluconate. Today's serum calcium 7.8, corrected calcium is normal. #6 hypertension: Upon review of his blood pressure readings, his pressure has been always in the 142/50 systolic, sometimes up to up to 170s. Plan: We will start him on Norvasc. #7 hepatitis C: Hepatitis serology sent and pending. HIV 1 and 2 antibodies are negative. #8 drug abuse: Recently, patient was admitted for opioid withdrawal. He stated that his last dose of heroin was about 3 weeks ago. #9 DVT prophylaxis: Subcu heparin. This note was generated with [employer] software. It may contain incorrect words, spelling, and punctuation that were not noted in checking the note before signing. Code Visit Inpatient E&M: 29410 Subs Hosp L2
[2018-02-11] MEDS: metroNIDAZOLE 500 MG Tablet PO ×3 (08:58→21:06)
[2018-02-11] MEDS: amLODIPine 5 MG Tablet PO (09:00)
[2018-02-11] MEDS: Heparin Injection (Vial) 5,000 UNIT/ML VIAL 5000 UNIT SC ×2 (09:00→21:07)
[2018-02-11] MEDS: Famotidine 20 MG Tablet PO ×2 (09:00→21:06)
--- NOTE | 2018-02-11 09:07 | OP.PCM_ITS ---
Report of Operation Date of Procedure: 02/10/18 Pre-Operative Diagnosis: 1. Nonhealing infected necrotic MRSA ulcer left medial leg. 2. MRSA bacteremic sepsis. 3. History of IV drug use. 4. Smoker. Post-Operative Diagnosis: Same. Surgery/Procedure Performed:: Surgical preparation left medial leg with incision and drainage and excisional debridement infected necrotic MRSA ulcer ( 280 cm2). Description of Surgical Findings:: The patient is a 57 year old M with past medical history of heroin abuse was admitted for abdominal pain. It was noted also that he had a nonhealing infected ulcer left medial leg with malodor. He doesn't know how long the ulcer has been present. In the ED, WBC was 17. This morning it had decreased to 11. Blood cultures showed MRSA. Lactate was 1.6. CT Abdomen showed no intra-abdominal pathology. CT Left leg showed skin thickening and edema. No definite abscess seen. He was started on IV Vancomycin and Zosyn. The patient denies use of heroin recently. He states his last use was about a month ago. His tox screen in the ED was positive for opiates. Patient was informed of the risks and complications of the procedure including alternatives to surgery. These were discussed with the patient personally. Patient voices understanding and wishes to proceed. Encouraged patient to stop smoking as it may have deleterious effects on wound healing. Size of defect left medial leg - 28 x 10 x 1 cm. bond manager: None Type of Anesthesia:: General Specimen's removed: Left medial leg infected ulcer to Pathology and Microbiology. Drains: None. Estimated Blood Loss (mL): 50 ml. Description of Procedure: Patient was taken to OR in supine position and was placed under general anesthesia. His left leg was prepped and draped in the usual fashion. SCD's were placed on the right leg for DVT prophylaxis. Perioperative antibiotics were given intravenously. Using xylocaine with epinephrine, I infiltrated the necrotic ulcer. After waiting 5 minutes for the anesthetic to take effect, I proceeded with incision and drainage around the necrotic ulcer left medial leg. The skin was very indurated. Incision was carried down through the subcutaneous tissue until the muscular fascia was seen. The fascia was inflamed and edematous but appeared viable. A lot of fat necrosis was present that was sharply debrided and excised. Small amount of pus was seen which appeared thickened. The nonviable skin and necrotic ulcerations were also sharply debrided and excised. The tissue was sent to Pathology for analysis and to Microbiology for culture. A positive culture may necessitate antibiotic modification. Hemostasis was obtained with electrocautery. The wound was irrigated with saline. The size of the defect left medial leg after the incision and drainage and excisional debridement was 28 x 10 x 1 cm. The wound was then packed with Mepitel nonadherent dressing followed by Kerlix gauze soaked in Betadine. This was followed by a dry Kerlix gauze and ABD pads and an GEETHA wrap to complete the compression dressing. Patient tolerated the procedure well and was sent to PACU in satisfactory condition. He will be sent back upstairs for continued postop care. Will place the VAC tomorrow. Anticipate increased metabolic demands from the infection and from the wound. Will check a Prealbumin and encourage nutritional supplementation with protein to help the healing process. After discharge, may followup at the [facility]. If there is a plateau in the healing process, can proceed with delayed closure with skin grafting. Grafts/Implants Used: None. - Complications None. - Admit VTE Documentation VTE Present on Admission: No VTE Mechan Device Prophylaxis: SCD's VTE Pharm Prophylaxis ordered?: Yes Code Visit Surgery Charges CPT - 66799 ICD-10 - L97.925, L02.416, I96, R78.81, A41.9, Z87.898 , F17.200 72249 L97.925, L02.416, I96, R78.81, A41.9, Z87.898, F17.200 08975 L97.925, L02.416, I96, R78.81, A41.9, Z87.898, F17.200 14795 L97.925, L02.416, I96, R78.81, A41.9, Z87.898, F17.200
[2018-02-11 11:33] LABS: HCV log 10 6.004 (.); Hepatitis B Core Ab Total Negative (Negative)
--- NOTE | 2018-02-11 14:15 | PCM.PN.ID ---
Patient Problems: Active and Suspected Problems Sepsis (Acute) MRSA bacteremia (Acute) Subjective: C/o severe pain in LLE s/p OR and wound vac placement. No fever, no n/v. Some loose stool. Having L sided abd pain. - Physical Exam General: Alert, Cooperative, No apparent distress Lungs: Clear to auscultation, Normal air movement Cardiovascular: Regular rate, Regular Rhythm Abdomen: Soft, Non Tender, Non-Distended Skin: Ulcer/ Wound - L heard with wound vac in place Vital Signs Temp Pulse Resp BP Pulse Ox 98.4 F 70 18 178/90 H 100 02/11/18 09:11 02/11/18 10:29 02/11/18 09:11 02/11/18 09:11 02/11/18 09:11 Oxygen Flow Rate (L/min) 2 Oxygen Delivery Method Room Air Weight: 136.1 kg Body Mass Index (BMI) 37.5 Intake and Output for Last 24 Hours 02/09/18 02/10/18 02/11/18 23:59 23:59 23:59 Intake Total 3186.9 / 3186.9 3159 / 3159 3445 / 3445 Output Total 1200 / 1200 1375 / 1375 3725 / 3725 Balance 1986.9 / 1986.9 1784 / 1784 -280 / -280 Microbiology Past 72 Hours 02/10/18 16:19 Gram Stain - Final Tissue - Leg Wound Culture - Preliminary Gram negative susan Staphylococcus aureus 02/09/18 11:54 Blood Culture - Preliminary Blood Culture (Wb) - Line Draw Staphylococcus aureus 02/08/18 10:40 Bacteria Detection (PCR) - Final Blood Culture (Wb) - Left Hand Meth. resistant Staph. aureus Blood Culture - Final Meth. resistant Staph. aureus Laboratory Tests Past 24 Hrs 02/09/18 02/10/18 02/11/18 11:54 18:42 05:10 WBC 7.2 RBC 3.52 L Hgb 11.8 L Hct 34.1 L MCV 96.9 H MCH 33.5 H MCHC 34.6 RDW 11.4 L RDW Differential 39.2 Plt Count 225 MPV 9.9 Sodium Potassium Chloride Carbon Dioxide Anion Gap BUN Creatinine Estim Creat Clear Calc Est GFR (MDRD) Af Amer Est GFR (MDRD) Non-Af BUN/Creatinine Ratio Glucose Calcium Vancomycin Trough 12.7 Hep Bs Antigen Negative Hep B Core Total Ab Negative HCV RNA Quant (PCR) [id number] HCV RNA (PCR) log10 6.004 Hepatitis C RNA Comment Comment 02/11/18 05:10 WBC RBC Hgb Hct MCV MCH MCHC RDW RDW Differential Plt Count MPV Sodium 138 Potassium 3.5 Chloride 104 Carbon Dioxide 27.0 Anion Gap 7 BUN 10 Creatinine 0.69 L Estim Creat Clear Calc 141.17 Est GFR (MDRD) Af Amer 151 Est GFR (MDRD) Non-Af 125 BUN/Creatinine Ratio 14.4 Glucose 107 H Calcium 7.8 L Vancomycin Trough Hep Bs Antigen Hep B Core Total Ab HCV RNA Quant (PCR) HCV RNA (PCR) log10 Hepatitis C RNA Comment Medical Necessity - Tobacco Use Smoking Status: Current every day smoker Tobacco Use: Cigarettes Route of nutrition/ use of supplements: [] Nutritional Intake: [] IV Site: [] Downing Catheter: [] - Assessment/Plan Antibiotics: [] Assessment/Plan: [] Active and Suspected Problems sepsis with MRSA bacteremia likely due to LLE infection - picc placed while bacteremic. TTE with no veg seen. Wound cx with MRSA and ecoli, now s/p debridement by Dr. Kulkarni 02/[address] Cont vanc, ceftriaxone, flagyl. If bcx do not clear now that he has had surgery for source control, recommend picc removal and line holiday if possible and check PB. IVDU with hep C - HIV neg. Hep C pcr (+). abnormal CT chest - ? may need biopsy to eval for malignancy Will follow
--- NOTE | 2018-02-11 15:32 | CASEMGMT ---
Patient is likely going to need to be discharged on IV antibiotics. Patient has a history of heroin abuse. Therefore, it is not a good idea to discharge patient with IV access. RAE spoke with patient about this situation. RAE told him we could look into a nursing home facility for him so he can get his IV antibiotics and give his wound time to heal. He laughed at SW. He said, You actually think I will go to a fdc? He said his partner would not go for that. He said he doesn't care about drugs. His partner is on probation and if he uses drugs he will go to correction for 2 years. He first said he hasn't used since before July then it changed to before Katherine, and finally he said it may have been a month or so. RAE told him he is really going to need to think about this as the physician is not going to be comfortable discharging him with IV access. Aysha BLUE
--- NOTE | 2018-02-11 19:10 | PCM.PN.SRG ---
Subjective: Postop #1 VAC applied today. - Physical Exam General: Alert, Oriented x3 HEENT: PERRLA, EOMI Oral: Moist Mucosa Abdomen: Soft, Non-Distended Skin: Ulcer/ Wound - left medial leg wound is stable. No bleeding seen. VAC applied today. Continue GEETHA wrap for compression. Neurological: Cranial nerves II-XII grossly intact Psych/Mental Status: Normal Affect, Appropriate Vital Signs Temp Pulse Resp BP Pulse Ox 98.9 F 68 18 181/89 H 95 02/11/18 14:55 02/11/18 14:55 02/11/18 14:55 02/11/18 14:55 02/11/18 14:55 Oxygen Flow Rate (L/min) 2 Oxygen Delivery Method Room Air Weight: 300 lb 0.786 oz Body Mass Index (BMI) 37.5 Intake and Output for Last 24 Hours 02/09/18 02/10/18 02/11/18 23:59 23:59 23:59 Intake Total 3186.9 / 3186.9 3159 / 3159 3894 / 3894 Output Total 1200 / 1200 1375 / 1375 4725 / 4725 Balance 1985. / 1985.9 1784 / 1784 -831 / -831 Microbiology Past 72 Hours 02/10/18 16:19 Gram Stain - Final Tissue - Leg Wound Culture - Preliminary Gram negative susan Staphylococcus aureus 02/09/18 11:54 Blood Culture - Preliminary Blood Culture (Wb) - Line Draw Staphylococcus aureus 02/08/18 10:40 Bacteria Detection (PCR) - Final Blood Culture (Wb) - Left Hand Meth. resistant Staph. aureus Blood Culture - Final Meth. resistant Staph. aureus Laboratory Tests Past 24 Hrs 02/09/18 02/10/18 02/11/18 11:54 18:42 05:10 WBC 7.2 RBC 3.52 L Hgb 11.8 L Hct 34.1 L MCV 96.9 H MCH 33.5 H MCHC 34.6 RDW 11.4 L RDW Differential 39.2 Plt Count 225 MPV 9.9 Sodium Potassium Chloride Carbon Dioxide Anion Gap BUN Creatinine Estim Creat Clear Calc Est GFR (MDRD) Af Amer Est GFR (MDRD) Non-Af BUN/Creatinine Ratio Glucose Calcium Vancomycin Trough 12.7 Hep Bs Antigen Negative Hep B Core Total Ab Negative HCV RNA Quant (PCR) [id number] HCV RNA (PCR) log10 6.004 Hepatitis C RNA Comment Comment 02/11/18 05:10 WBC RBC Hgb Hct MCV MCH MCHC RDW RDW Differential Plt Count MPV Sodium 138 Potassium 3.5 Chloride 104 Carbon Dioxide 27.0 Anion Gap 7 BUN 10 Creatinine 0.69 L Estim Creat Clear Calc 141.17 Est GFR (MDRD) Af Amer 151 Est GFR (MDRD) Non-Af 125 BUN/Creatinine Ratio 14.4 Glucose 107 H Calcium 7.8 L Vancomycin Trough Hep Bs Antigen Hep B Core Total Ab HCV RNA Quant (PCR) HCV RNA (PCR) log10 Hepatitis C RNA Comment Medical Necessity - Tobacco Use Smoking Status: Current every day smoker Tobacco Use: Cigarettes Assessment/Plan All Active Problems 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 Nonhealing infected necrotic MRSA ulcer left medial leg. 2. MRSA bacteremic sepsis. 3. History of IV drug use. 4. Smoker. VAC in place. To be changed three times per week at 150 mmHg continuous suction. Continue IV antibiotics with Vancomycin and Zosyn. Besides MRSA, operative culture also shows Gram negative susan. PICC line in place. The necrotic ulcer left medial leg is probably the source of his MRSA bacteremic sepsis. Prealbumin was 5.1. Encourage nutritional supplementation with protein to help the healing process. After discharge, he will followup at the [facility]. If there is plateau in the healing process, can proceed with delayed closure with skin grafting. Discussed with the patient the importance of getting help for his history of IV drug use. Continued use will increase his risk of continued infections, amputation, and . He is aware of that possibility and will followup with his PCP for that assistance. Encouraged patient to stop smoking as it may have deleterious effects on wound healing.
[2018-02-12] VITALS (8 sets, daily range): BP systolic 147–186; BP diastolic 47–88; PULSE 62–77; RESP 16–18; TEMP 36.9–37.1; O2SAT 94–98
[2018-02-12] MEDS: HYDROmorphone 1 MG/ML Syringe IV ×4 (03:42→16:11)
[2018-02-12] MEDS: 0.9% NaCl Peripheral Flush Adult/Peds IV ×4 (03:42→10:10)
[2018-02-12] MEDS: metroNIDAZOLE 500 MG Tablet PO ×2 (05:00→13:07)
--- NOTE | 2018-02-12 07:22 | CT_ITS ---
STUDY: CT BRAIN WITHOUT CONTRAST REASON FOR EXAM: Male, 57 years old. Headache, sepsis and fever RADIATION DOSAGE (If Supplied By Facility): CTDIvol = ( 44.99 ) mGy, DLP = ( 863.6 ) mGycm TECHNIQUE: Transaxial CT imaging of the brain was performed without administration of intravenous contrast material. Sagittal and coronal reconstructed images are provided and reviewed. Individualized dose optimization techniques were used for this CT. COMPARISON: None. FINDINGS: Normal soft tissue structures. Normal calvarium. Normal size ventricles and extra-axial spaces for the patient's age. Normal white matter tracts of the cerebral hemispheres. Normal basal ganglia and thalami. Normal brainstem. Normal cerebellum. There is no intracranial hemorrhage. There are no findings of an acute ischemic infarction. Normal visualized paranasal sinuses. CT/Brain/Head without Contrast IMPRESSION: No acute intracranial abnormality. Electronically Signed: Jasmeet Graham DO at 8:41 EDT Tel , Service support ,
--- NOTE | 2018-02-12 08:01 | PCM.PROGNOTE ---
Patient Problems: Active and Suspected Problems Sepsis (Acute) MRSA bacteremia (Acute) Subjective: Chief complaint: Follow-up after admission for nonhealing MRSA infected necrotic ulcer/surrounding cellulitis of the left medial leg and MRSA bacteremia. Patient had CT scan chest done yesterday that revealed multiple right lung pulmonary and subpleural nodules, left base consolidation and small pleural effusion with possible underlying metastatic lesions, also revealed left posterior lateral fourth rib bony lesion, metastasis cannot be excluded. Patient seen and examined. No acute events overnight. He is still complaining of left leg pain after application of the wound VAC. Left-sided abdominal pain still there but with minimal improvement. He denied headache, vision change, focal weakness. He smoked for almost 33 years. This morning, blood pressure elevated, other vital signs are stable. - Physical Exam General: Alert, Oriented x3, Cooperative, No apparent distress HEENT: Atraumatic, PERRLA, EOMI, Normocephalic Oral: Moist Mucosa, No Gingival or Mucosal Lesions/ Ulcerations Neck: Supple, No JVD, Negative Carotid Bruits, Trachea Midline, Thyroid Normal Size and Texture Lungs: Clear to auscultation, No rhonchi, No wheeze, No rales, Diminished Cardiovascular: Regular rate, Regular Rhythm, Normal S1, Normal S2, PMI Normal Abdomen: Bowel Sounds Present, Soft, Non Tender, Non-Distended, No Hepato-splenomegaly Extremities: No clubbing, No cyanosis, No edema Skin: No rashes, Ulcer/ Wound Lymphatic: No Cervical, Supraclavicular, or Inguinal Adenopathy Neurological: Cranial nerves II-XII grossly intact, Motor Exam 5/5 strength throughout Psych/Mental Status: Appropriate, Flat Affect, Alert and oriented to time, place, person, mood and affect Vital Signs Temp Pulse Resp BP Pulse Ox 98.7 F 65 16 147/75 H 94 02/12/18 03:46 02/12/18 05:40 02/12/18 03:46 02/12/18 05:40 02/12/18 03:46 Oxygen Flow Rate (L/min) 2 Oxygen Delivery Method Room Air Weight: 300 lb 0.786 oz Body Mass Index (BMI) 37.5 Intake and Output for Last 24 Hours 02/10/18 02/11/18 02/12/18 23:59 23:59 23:59 Intake Total 3159 / 3159 4909 / 4909 390.5 / 390.5 Output Total 1375 / 1375 5825 / 5825 475 / 475 Balance 1784 / 1784 -916 / -916 -84.5 / -84.5 Microbiology Past 72 Hours 02/10/18 16:19 Gram Stain - Final Tissue - Leg Wound Culture - Preliminary Gram negative susan Staphylococcus aureus 02/09/18 11:54 Blood Culture - Preliminary Blood Culture (Wb) - Line Draw Staphylococcus aureus 02/08/18 10:40 Bacteria Detection (PCR) - Final Blood Culture (Wb) - Left Hand Meth. resistant Staph. aureus Blood Culture - Final Meth. resistant Staph. aureus Laboratory Tests Past 24 Hrs 02/09/18 11:54 Hep Bs Antigen Negative Hep B Core Total Ab Negative HCV RNA Quant (PCR) [id number] HCV RNA (PCR) log10 6.004 Hepatitis C RNA Comment Comment Clinical Impression(s) from Imaging Studies Lower Extremity CT 02/08/18 12:44 IMPRESSION: Skin thickening and subcutaneous edema. Small focus of subcutaneous air. No abscess. No osseous erosion. Electronically Signed: Igor Welch MD at 15:49 EDT , Service support , ADDENDUM: 02/09/18 1622 Abdomen/Pelvis CT 02/10/18 07:36 IMPRESSION: Stable right upper pole renal basilar atelectasis. Left lower lung infiltrate not excluded. No acute abdominal or pelvic findings. Electronically Signed: Jaime Dennis DO at 20:41 EDT , Service support , Chest CT 02/11/18 07:59 IMPRESSION: Multiple variable size right lung noncalcified pulmonary and subpleural nodules, cannot exclude neoplasm/metastasis. If clinically indicated, recommend PET/CT scan for further evaluation exclude neoplasm/metastasis. Left lung base posterior lateral consolidation changes and pleural effusion, most likely represents pneumonia but cannot exclude underlying neoplasm/metastasis. Recommend follow-up CT chest 2-4 weeks after treatment to demonstrate complete clearing. Numerous moderately enlarged lymph nodes, borderline adenopathy most likely reactive but cannot exclude metastatic etiology. Clinical correlation follow-up recommended. No large gross bulky adenopathy identified with above limitations. Mild descending thoracic aortic aneurysm 3.5 cm diameter. Bone tiny bone island versus a osseous metastasis left posterior lateral fourth rib. Again, PET/CT scan helpful to exclude osseous metastasis. Borderline anterior wedge compression fracture T11, appears old and unchanged since CT study 02/08/2018. Clinical correlation recommended. Limitations above. Electronically Signed: Con Quispe, at 11:47 EDT Tel , Service support , Medical Necessity - Tobacco Use Smoking Status: Current every day smoker Tobacco Use: Cigarettes Assessment/Plan All Active Problems Skin necrosis (Acute) Abscess of left leg (Acute) Sepsis (Acute) MRSA bacteremia (Acute) This is a 57 years old male patient presented to the emergency department because of left-sided abdominal pain, found to have left lower leg nonhealing, infected gangrenous ulcer with sepsis and MRSA bacteremia. #1 acute left medial leg MRSA infected/necrotic ulcer/surrounding cellulitis: Status post incision, drainage and excisional debridement, status post incision of wound VAC, postoperative day 2. Remained on IV vancomycin and Rocephin. White blood cell count is back to normal. Wound culture revealed MRSA and E. coli. Blood culture revealed MRSA. Culture of the operative specimen showed staph aureus and gram-negative susan, final is pending. Plastic surgery and infectious disease in the case. Plan to continue same treatment. #2 sepsis: Secondary to above. He is on IV antibiotics. Cultures reviewed as above. Lactic acid was normal. Vital signs are stable. #3 MRSA bacteremia: Remained on IV vancomycin. Likely source is the left lower extremity gangrenous ulcer/wound. Initial blood culture revealed MRSA. Repeat blood culture from February 09, 2019 also showed staph aureus, final is pending. Another repeat blood culture from February 10 and February 11, 2018 are pending as well. Transthoracic 2D echocardiogram revealed ejection fraction 65%, RVSP of 31, no vegetations. Plan to continue same treatment. #4 probable left lower lung pneumonia: Unclear if this is community-acquired or healthcare acquired. CT chest revealed left lung base consolidation and pleural effusion. Patient is already on vancomycin and Rocephin. He has been afebrile, no leukocytosis. Plan to consult pulmonology, continue same treatment. #5 multiple right lung pulmonary and subpleural nodules/left base questionable nodules/hilar lymphadenopathy/questionable left fourth rib bony lesion: All these are incidental findings on CT scan chest. Patient is a big time smoker, he smoked for 33 years. Malignancy is in the differential diagnosis. Because patient has bacteremia and also had a history of IV drug use, septic emboli also was in the differential diagnosis. Patient may need PB. Plan: Pulmonary consult, oncology consult, CT scan brain. #6 left sided abdominal pain: Unclear etiology. Could be due to the left base pneumonia. Both CT scan abdomen and pelvis with and without contrast performed and revealed no intra-abdominal or pelvic pathology that can explain this pain. #7 hypocalcemia: He received IV calcium gluconate. Yesterday's serum calcium 7.8, corrected calcium is normal. #8 hypertension: Started on Norvasc. This morning, blood pressure still elevated. He is on IV labetalol as needed. Plan for monitoring. #9 hepatitis C: Hepatitis serology sent. Hepatitis B surface antigen is negative, hepatitis B core antibodies are negative. HIV 1 and 2 antibodies are nonreactive. #10 drug abuse: Recently, patient was admitted for opioid withdrawal. He stated that his last dose of heroin was about 3 weeks ago. #11 DVT prophylaxis: Subcu heparin. This note was generated with [employer] dictation software. It may contain incorrect words, spelling, and punctuation that were not noted in checking the note before signing. Code Visit Inpatient E&M: [id number] [facility] Hosp L3
--- NOTE | 2018-02-12 08:15 | PN_ITS ---
Patient Problems: Active and Suspected Problems Sepsis (Acute) MRSA bacteremia (Acute) Subjective: Chief complaint: Follow-up after admission for nonhealing MRSA infected necrotic ulcer/surrounding cellulitis of the left medial leg and MRSA bacteremia. Patient had CT scan chest done yesterday that revealed multiple right lung pulmonary and subpleural nodules, left base consolidation and small pleural effusion with possible underlying metastatic lesions, also revealed left posterior lateral fourth rib bony lesion, metastasis cannot be excluded. Patient seen and examined. No acute events overnight. He is still complaining of left leg pain after application of the wound VAC. Left-sided abdominal pain still there but with minimal improvement. He denied headache, vision change, focal weakness. He smoked for almost 33 years. This morning, blood pressure elevated, other vital signs are stable. - Physical Exam General: Alert, Oriented x3, Cooperative, No apparent distress HEENT: Atraumatic, PERRLA, EOMI, Normocephalic Oral: Moist Mucosa, No Gingival or Mucosal Lesions/ Ulcerations Neck: Supple, No JVD, Negative Carotid Bruits, Trachea Midline, Thyroid Normal Size and Texture Lungs: Clear to auscultation, No rhonchi, No wheeze, No rales, Diminished Cardiovascular: Regular rate, Regular Rhythm, Normal S1, Normal S2, PMI Normal Abdomen: Bowel Sounds Present, Soft, Non Tender, Non-Distended, No Hepato- splenomegaly Extremities: No clubbing, No cyanosis, No edema Skin: No rashes, Ulcer/ Wound Lymphatic: No Cervical, Supraclavicular, or Inguinal Adenopathy Neurological: Cranial nerves II-XII grossly intact, Motor Exam 5/5 strength throughout Psych/Mental Status: Appropriate, Flat Affect, Alert and oriented to time, place , person, mood and affect Vital Signs Temp Pulse Resp BP Pulse Ox 98.7 F 65 16 147/75 H 94 02/12/18 03:46 02/12/18 05:40 02/12/18 03:46 02/12/18 05:40 02/12/18 03:46 Oxygen Flow Rate (L/min) 2 Oxygen Delivery Method Room Air Weight: 300 lb 0.786 oz Body Mass Index (BMI) 37.5 Intake and Output for Last 24 Hours 02/10/18 02/11/18 02/12/18 23:59 23:59 23:59 Intake Total 3159 / 3159 4909 / 4909 390.5 / 390.5 Output Total 1375 / 1375 5825 / 5825 475 / 475 Balance 1784 / 1784 -916 / -916 -84.5 / -84.5 Microbiology Past 72 Hours 02/10/18 16:19 Gram Stain - Final Tissue - Leg Wound Culture - Preliminary Gram negative susan Staphylococcus aureus 02/09/18 11:54 Blood Culture - Preliminary Blood Culture (Wb) - Line Draw Staphylococcus aureus 02/08/18 10:40 Bacteria Detection (PCR) - Final Blood Culture (Wb) - Left Hand Meth. resistant Staph. aureus Blood Culture - Final Meth. resistant Staph. aureus Laboratory Tests Past 24 Hrs 02/09/18 11:54 Hep Bs Antigen Negative Hep B Core Total Ab Negative HCV RNA Quant (PCR) [id number] HCV RNA (PCR) log10 6.004 Hepatitis C RNA Comment Comment Clinical Impression(s) from Imaging Studies Lower Extremity CT 02/08/18 12:44 IMPRESSION: Skin thickening and subcutaneous edema. Small focus of subcutaneous air. No abscess. No osseous erosion. Electronically Signed: Igor Welch MD at 15:49 EDT , Service support , ADDENDUM: 02/09/18 1622 Abdomen/Pelvis CT 02/10/18 07:36 IMPRESSION: Stable right upper pole renal basilar atelectasis. Left lower lung infiltrate not excluded. No acute abdominal or pelvic findings. Electronically Signed: Jaime Dennis DO at 20:41 EDT , Service support , Chest CT 02/11/18 07:59 IMPRESSION: Multiple variable size right lung noncalcified pulmonary and subpleural nodules, cannot exclude neoplasm/metastasis. If clinically indicated, recommend PET/CT scan for further evaluation exclude neoplasm/metastasis. Left lung base posterior lateral consolidation changes and pleural effusion, most likely represents pneumonia but cannot exclude underlying neoplasm/metastasis. Recommend follow-up CT chest 2-4 weeks after treatment to demonstrate complete clearing. Numerous moderately enlarged lymph nodes, borderline adenopathy most likely reactive but cannot exclude metastatic etiology. Clinical correlation follow-up recommended. No large gross bulky adenopathy identified with above limitations. Mild descending thoracic aortic aneurysm 3.5 cm diameter. Bone tiny bone island versus a osseous metastasis left posterior lateral fourth rib. Again, PET/CT scan helpful to exclude osseous metastasis. Borderline anterior wedge compression fracture T11, appears old and unchanged since CT study 02/08/2018. Clinical correlation recommended. Limitations above. Electronically Signed: Con Quispe, at 11:47 EDT Tel , Service support , Medical Necessity - Tobacco Use Smoking Status: Current every day smoker Tobacco Use: Cigarettes Assessment/Plan All Active Problems Skin necrosis (Acute) Abscess of left leg (Acute) Sepsis (Acute) MRSA bacteremia (Acute) This is a 57 years old male patient presented to the emergency department because of left-sided abdominal pain, found to have left lower leg nonhealing, infected gangrenous ulcer with sepsis and MRSA bacteremia. #1 acute left medial leg MRSA infected/necrotic ulcer/surrounding cellulitis: Status post incision, drainage and excisional debridement, status post incision of wound VAC, postoperative day 2. Remained on IV vancomycin and Rocephin. White blood cell count is back to normal. Wound culture revealed MRSA and E. coli. Blood culture revealed MRSA. Culture of the operative specimen showed staph aureus and gram-negative susan, final is pending. Plastic surgery and infectious disease in the case. Plan to continue same treatment. #2 sepsis: Secondary to above. He is on IV antibiotics. Cultures reviewed as above. Lactic acid was normal. Vital signs are stable. #3 MRSA bacteremia: Remained on IV vancomycin. Likely source is the left lower extremity gangrenous ulcer/wound. Initial blood culture revealed MRSA. Repeat blood culture from February 09, 2019 also showed staph aureus, final is pending. Another repeat blood culture from February 10 and February 11, 2018 are pending as well. Transthoracic 2D echocardiogram revealed ejection fraction 65%, RVSP of 31, no vegetations. Plan to continue same treatment. #4 probable left lower lung pneumonia: Unclear if this is community-acquired or healthcare acquired. CT chest revealed left lung base consolidation and pleural effusion. Patient is already on vancomycin and Rocephin. He has been afebrile, no leukocytosis. Plan to consult pulmonology, continue same treatment. #5 multiple right lung pulmonary and subpleural nodules/left base questionable nodules/hilar lymphadenopathy/questionable left fourth rib bony lesion: All these are incidental findings on CT scan chest. Patient is a big time smoker, he smoked for 33 years. Malignancy is in the differential diagnosis. Because patient has bacteremia and also had a history of IV drug use, septic emboli also was in the differential diagnosis. Patient may need PB. Plan: Pulmonary consult, oncology consult, CT scan brain. #6 left sided abdominal pain: Unclear etiology. Could be due to the left base pneumonia. Both CT scan abdomen and pelvis with and without contrast performed and revealed no intra-abdominal or pelvic pathology that can explain this pain. #7 hypocalcemia: He received IV calcium gluconate. Yesterday's serum calcium 7.8, corrected calcium is normal. #8 hypertension: Started on Norvasc. This morning, blood pressure still elevated. He is on IV labetalol as needed. Plan for monitoring. #9 hepatitis C: Hepatitis serology sent. Hepatitis B surface antigen is negative, hepatitis B core antibodies are negative. HIV 1 and 2 antibodies are nonreactive. #10 drug abuse: Recently, patient was admitted for opioid withdrawal. He stated that his last dose of heroin was about 3 weeks ago. #11 DVT prophylaxis: Subcu heparin. This note was generated with [employer] dictation software. It may contain incorrect words, spelling, and punctuation that were not noted in checking the note before signing. Code Visit Inpatient E&M: [id number] [facility] Hosp L3
[2018-02-12] MEDS: Heparin Injection (Vial) 5,000 UNIT/ML VIAL 5000 UNIT SC (09:47)
[2018-02-12] MEDS: amLODIPine 10 MG Tablet PO (10:10)
[2018-02-12] MEDS: Famotidine 20 MG Tablet PO (10:10)
--- NOTE | 2018-02-12 10:24 | PCM.PN.ID ---
Patient Problems: Active and Suspected Problems Sepsis (Acute) MRSA bacteremia (Acute) Subjective: Abd pain resolved. No fever. No n/v/d. - Physical Exam General: Alert, Cooperative, No apparent distress Lungs: Clear to auscultation, Normal air movement Cardiovascular: Regular rate, Regular Rhythm Abdomen: Soft, Non Tender, Non-Distended Skin: Incision - LLE with wound vac in place Vital Signs Temp Pulse Resp BP Pulse Ox 98.5 F 67 18 163/81 H 95 02/12/18 09:45 02/12/18 09:45 02/12/18 09:45 02/12/18 09:45 02/12/18 09:45 Oxygen Flow Rate (L/min) 2 Oxygen Delivery Method Room Air Weight: 136.1 kg Body Mass Index (BMI) 37.5 Intake and Output for Last 24 Hours 02/10/18 02/11/18 02/12/18 23:59 23:59 23:59 Intake Total 3159 / 3159 4909 / 4909 390.5 / 390.5 Output Total 1375 / 1375 5825 / 5825 475 / 475 Balance 1784 / 1784 -916 / -916 -84.5 / -84.5 Microbiology Past 72 Hours 02/10/18 16:19 Gram Stain - Final Tissue - Leg Wound Culture - Final Escherichia coli Meth. resistant Staph. aureus 02/09/18 11:54 Blood Culture - Preliminary Blood Culture (Wb) - Line Draw Staphylococcus aureus 02/08/18 10:40 Bacteria Detection (PCR) - Final Blood Culture (Wb) - Left Hand Meth. resistant Staph. aureus Blood Culture - Final Meth. resistant Staph. aureus Laboratory Tests Past 24 Hrs 02/09/18 11:54 Hep Bs Antigen Negative Hep B Core Total Ab Negative HCV RNA Quant (PCR) [id number] HCV RNA (PCR) log10 6.004 Hepatitis C RNA Comment Comment Medical Necessity - Tobacco Use Smoking Status: Current every day smoker Tobacco Use: Cigarettes Route of nutrition/ use of supplements: [] Nutritional Intake: [] IV Site: [] Downing Catheter: [] - Assessment/Plan Antibiotics: [] Assessment/Plan: [] Active and Suspected Problems sepsis with MRSA bacteremia likely due to LLE infection - picc placed while bacteremic. TTE with no veg seen. Wound cx with MRSA and ecoli, now s/p debridement by Dr. Kulkarni 02/[address] Cont vanc, ceftriaxone, flagyl. If bcx do not clear, recommend picc removal and line holiday if possible. Based on CT chest, will need PB. IVDU with hep C - HIV neg. Hep C pcr (+). Will follow, d/w primary team.
--- NOTE | 2018-02-12 11:35 | CON.PCM_ITS ---
Problem List (1) Smoker Status: Chronic (2) Skin necrosis Status: Acute Comment: nonhealing infected necrotic MRSA ulcer left medial leg (3) Abscess of left leg Status: Acute (4) Nonhealing ulcer of left lower leg Status: Chronic Comment: nonhealing infected necrotic MRSA ulcer left medial leg (5) MRSA bacteremia Status: Acute (6) Hypertension Status: Chronic Qualifiers: Hypertension type: essential hypertension Qualified Code(s): I10 - Essential (primary) hypertension (7) Hepatitis C Status: Chronic (8) History of heroin abuse Status: Chronic Reason for Consult Date of Consultation: 02/12/18 Reason for Consultation: Abnormal CT History of Present Illness: The patient is a 57 year old M, with past medical history listed below, who presented to [facility] on 02/08/2018 secondary to left-sided abdominal pain that started at approximately 1 AM on the day of presentation. Patient was noted to have a fever of 102.6?F, tachycardia at 107 bpm and 97% on room air. Patient has had an extensive hospital course with need for debridement of a left lower extremity abscess. Patient continued to report abdominal pain, so a CT scan of the abdomen was obtained. This did not show any new findings, but there was a question of a left lower lobe infiltrate. This was followed by a CT scan of the chest showing multiple small subcentimeter nodules, lymphadenopathy and some emphysematous changes. A pulmonary consult was obtained for evaluation. Patient reports no previous history of cellulitis. Patient has been found to have MRSA from the wound and in the blood. Patient did have a transthoracic echo showing no vegetations. Patient does report a 20+ pack year smoking history, but denies any dyspnea on exertion at baseline. Patient denies any exposure to asbestos or tuberculosis. Patient reports some discomfort in the left flank, but this is improving with antibiotic therapy. Patient has not required any supplemental oxygen during hospitalization. Patient is worried about the need for a fdc with extended antibiotics. Review of systems otherwise negative ?10 systems. Past Medical History Past Medical History (Chronic Problems): Chronic Problems Smoker (Chronic) Nonhealing ulcer of left lower leg (Chronic) nonhealing infected necrotic MRSA ulcer left medial leg Abdominal pain (Chronic) Hypertension (Chronic) Hepatitis C (Chronic) History of heroin abuse (Chronic) Allergies No Known Allergies Allergy (Verified 02/08/18 06:57) Home Medications: Ambulatory Orders Medication Instructions Recorded NK [NK] 08/05/18 Surgical History: cholecystectomy Psychiatric History: No pertinent psych hx Smoking Status: Current every day smoker Tobacco Use: Cigarettes - *Family History Maternal History Items: Cancer - Breast cancer Paternal History Items: Unknown Review of Systems Comment: See HPI Patient Problems: Active and Suspected Problems Sepsis (Acute) MRSA bacteremia (Acute) Objective: CT of the chest was personally reviewed. This does show borderline atelectasis bilateral lower lobes. Patient does have what appears to be septic emboli and a small left-sided pleural effusion with an element of compressive atelectasis. - Physical Exam General: Alert, Oriented x3, Cooperative, No apparent distress, - - Speaking in full sentences. No splinting with deep inhalation HEENT: Atraumatic, PERRLA, EOMI, Normocephalic, - - No scleral icterus or injection noted. Oral: Moist Mucosa, No Gingival or Mucosal Lesions/ Ulcerations, - - Fair dentition Neck: Supple, No JVD, No Nodes, Trachea Midline Lungs: No rhonchi, No wheeze, Diminished, Rales - Left base, - - No dullness to percussion. Unable to reproduce sensation with palpation Cardiovascular: Regular rate, Regular Rhythm, Normal S1, Normal S2, No murmurs, No rub noted, No Gallop Abdomen: Bowel Sounds Present, Soft, Non Tender, Non-Distended, Obese Extremities: No clubbing, No cyanosis, No edema, Capillary Refill Less than 3 Seconds Skin: - - Wound VAC in place over medial aspect of left leg. Musculoskeletal: No Tenderness to Palpation of Joints or Extremities Lymphatic: No Cervical, Supraclavicular, or Inguinal Adenopathy Neurological: Cranial nerves II-XII grossly intact, Neuro grossly intact Psych/Mental Status: Alert and oriented to time, place, person, mood and affect Vital Signs Temp Pulse Resp BP Pulse Ox 36.9 C 67 18 163/81 H 95 02/12/18 09:45 02/12/18 09:45 02/12/18 09:45 02/12/18 09:45 02/12/18 09:45 Oxygen Flow Rate (L/min) 2 Oxygen Delivery Method Room Air Weight: 136.1 kg Body Mass Index (BMI) 37.5 Intake and Output for Last 24 Hours 02/10/18 02/11/18 02/12/18 23:59 23:59 23:59 Intake Total 3159 / 3159 4909 / 4909 390.5 / 390.5 Output Total 1375 / 1375 5825 / 5825 475 / 475 Balance 1784 / 1784 -916 / -916 -84.5 / -84.5 Microbiology Past 72 Hours 02/10/18 16:19 Gram Stain - Final Tissue - Leg Wound Culture - Final Escherichia coli Meth. resistant Staph. aureus 02/09/18 11:54 Blood Culture - Preliminary Blood Culture (Wb) - Line Draw Staphylococcus aureus 02/08/18 10:40 Bacteria Detection (PCR) - Final Blood Culture (Wb) - Left Hand Meth. resistant Staph. aureus Blood Culture - Final Meth. resistant Staph. aureus Laboratory Tests 02/08/18 02/08/18 02/08/18 07:15 08:22 08:25 WBC 17.0 H RBC 4.45 L Hgb 14.7 Hct 43.0 MCV 96.6 H MCH 33.0 H MCHC 34.2 RDW 12.1 RDW Differential 43.1 Plt Count 231 MPV 10.1 Immature Gran % (Auto) 0.200 Neut % (Auto) 79.2 H Lymph % (Auto) 14.3 L Jay % (Auto) 5.8 Eos % (Auto) 0.4 Baso % (Auto) 0.1 Absolute Neuts (auto) 13.4 H Absolute Lymphs (auto) 2.42 Total Counted Not Reportable ESR APTT Sodium 141 Potassium 3.5 Chloride 114 H Carbon Dioxide 17.0 L Anion Gap 10 BUN 9 Creatinine 0.67 L Estim Creat Clear Calc 145.39 Est GFR (MDRD) Af Amer 157 Est GFR (MDRD) Non-Af 130 BUN/Creatinine Ratio 13.5 Glucose 92 Lactic Acid 1.6 Calcium 6.1 L* Total Bilirubin Direct Bilirubin AST ALT Alkaline Phosphatase Troponin I < 0.015 C-React Prot Ext Range Total Protein Albumin Globulin Albumin/Globulin Ratio Prealbumin Lipase 45 L Urine Color Urine Clarity Urine pH Ur Specific [place] Urine Protein Urine Glucose (UA) Urine Ketones Urine Occult Blood Urine Nitrite Urine Bilirubin Urine Urobilinogen Ur Leukocyte Esterase Urine RBC Urine WBC Ur Squamous Epith Cells Urine Bacteria Urine Mucus Vancomycin Trough Urine Opiates Screen Urine Methadone Screen Ur Barbiturates Screen Ur Phencyclidine Scrn Ur Amphetamines Screen U Methamphetamin-MDMA U Benzodiazepines Scrn Urine Cocaine Screen U Cannabinoids Screen Ur Drug Screen Comment Hep Bs Antigen Hep B Core Total Ab HCV RNA Quant (PCR) HCV RNA (PCR) log10 Hepatitis C RNA Comment HIV 1&2 Antibody 02/08/18 02/08/18 02/08/18 09:50 09:50 11:00 WBC RBC Hgb Hct MCV MCH MCHC RDW RDW Differential Plt Count MPV Immature Gran % (Auto) Neut % (Auto) Lymph % (Auto) Jay % (Auto) Eos % (Auto) Baso % (Auto) Absolute Neuts (auto) Absolute Lymphs (auto) Total Counted ESR APTT Sodium Potassium Chloride Carbon Dioxide Anion Gap BUN Creatinine Estim Creat Clear Calc Est GFR (MDRD) Af Amer Est GFR (MDRD) Non-Af BUN/Creatinine Ratio Glucose Lactic Acid Calcium Total Bilirubin 1.60 H Direct Bilirubin 1.05 H AST 42 H ALT 28 Alkaline Phosphatase 202 H Troponin I C-React Prot Ext Range Total Protein 8.2 Albumin 2.3 L Globulin 5.9 H Albumin/Globulin Ratio Prealbumin Lipase Urine Color Yellow Urine Clarity Clear Urine pH 6.0 Ur Specific [place] 1.015 Urine Protein 15 H Urine Glucose (UA) Normal Urine Ketones Negative Urine Occult Blood 250 H Urine Nitrite Negative Urine Bilirubin 1 H Urine Urobilinogen 8 H Ur Leukocyte Esterase 25 H Urine RBC 5-10 SEEN Urine WBC 0-5 SEEN Ur Squamous Epith Cells 0 SEEN Urine Bacteria 0 SEEN Urine Mucus 0 SEEN Vancomycin Trough Urine Opiates Screen POSITIVE H Urine Methadone Screen NEGATIVE Ur Barbiturates Screen NEGATIVE Ur Phencyclidine Scrn NEGATIVE Ur Amphetamines Screen NEGATIVE U Methamphetamin-MDMA NEGATIVE U Benzodiazepines Scrn NEGATIVE Urine Cocaine Screen NEGATIVE U Cannabinoids Screen NEGATIVE Ur Drug Screen Comment Hep Bs Antigen Hep B Core Total Ab HCV RNA Quant (PCR) HCV RNA (PCR) log10 Hepatitis C RNA Comment HIV 1&2 Antibody 02/09/18 02/09/18 02/09/18 09:20 09:20 11:54 WBC 11.5 H RBC 3.76 L Hgb 12.1 L Hct 36.8 L MCV 97.9 H MCH 32.2 H MCHC 32.9 RDW 12.3 RDW Differential 44.0 H Plt Count 154 MPV 10.7 Immature Gran % (Auto) 0.300 Neut % (Auto) 72.7 H Lymph % (Auto) 18.0 L Jay % (Auto) 7.4 Eos % (Auto) 1.5 Baso % (Auto) 0.1 Absolute Neuts (auto) 8.4 H Absolute Lymphs (auto) 2.08 Total Counted Not Reportable ESR APTT Sodium 139 Potassium 3.7 Chloride 109 H Carbon Dioxide 25.0 Anion Gap 5 BUN 11 Creatinine 0.86 Estim Creat Clear Calc 113.27 Est GFR (MDRD) Af Amer 118 Est GFR (MDRD) Non-Af 97 BUN/Creatinine Ratio 12.8 Glucose 113 H Lactic Acid Calcium 7.8 L Total Bilirubin 0.90 Direct Bilirubin AST 36 ALT 26 Alkaline Phosphatase 171 H Troponin I C-React Prot Ext Range Total Protein 7.5 Albumin 1.9 L Globulin 5.6 H Albumin/Globulin Ratio 0.3 L Prealbumin Lipase 144 Urine Color Urine Clarity Urine pH Ur Specific [place] Urine Protein Urine Glucose (UA) Urine Ketones Urine Occult Blood Urine Nitrite Urine Bilirubin Urine Urobilinogen Ur Leukocyte Esterase Urine RBC Urine WBC Ur Squamous Epith Cells Urine Bacteria Urine Mucus Vancomycin Trough Urine Opiates Screen Urine Methadone Screen Ur Barbiturates Screen Ur Phencyclidine Scrn Ur Amphetamines Screen U Methamphetamin-MDMA U Benzodiazepines Scrn Urine Cocaine Screen U Cannabinoids Screen Ur Drug Screen Comment Hep Bs Antigen Negative Hep B Core Total Ab Negative HCV RNA Quant (PCR) [id number] HCV RNA (PCR) log10 6.004 Hepatitis C RNA Comment Comment HIV 1&2 Antibody 02/09/18 02/09/18 02/10/18 11:54 18:40 04:00 WBC 8.5 RBC 3.96 L Hgb 12.9 L Hct 38.5 L MCV 97.2 H MCH 32.6 H MCHC 33.5 RDW 11.6 RDW Differential 40.2 Plt Count 201 MPV 10.0 Immature Gran % (Auto) 0.400 Neut % (Auto) 65.4 Lymph % (Auto) 21.2 Jay % (Auto) 10.5 H Eos % (Auto) 2.3 Baso % (Auto) 0.2 Absolute Neuts (auto) 5.6 Absolute Lymphs (auto) 1.81 Total Counted Not Reportable ESR 58 H APTT Sodium Potassium Chloride Carbon Dioxide Anion Gap BUN Creatinine Estim Creat Clear Calc Est GFR (MDRD) Af Amer Est GFR (MDRD) Non-Af BUN/Creatinine Ratio Glucose Lactic Acid Calcium Total Bilirubin Direct Bilirubin AST ALT Alkaline Phosphatase Troponin I C-React Prot Ext Range Total Protein Albumin Globulin Albumin/Globulin Ratio Prealbumin Lipase Urine Color Urine Clarity Urine pH Ur Specific [place] Urine Protein Urine Glucose (UA) Urine Ketones Urine Occult Blood Urine Nitrite Urine Bilirubin Urine Urobilinogen Ur Leukocyte Esterase Urine RBC Urine WBC Ur Squamous Epith Cells Urine Bacteria Urine Mucus Vancomycin Trough 29.3 H Urine Opiates Screen Urine Methadone Screen Ur Barbiturates Screen Ur Phencyclidine Scrn Ur Amphetamines Screen U Methamphetamin-MDMA U Benzodiazepines Scrn Urine Cocaine Screen U Cannabinoids Screen Ur Drug Screen Comment Hep Bs Antigen Hep B Core Total Ab HCV RNA Quant (PCR) HCV RNA (PCR) log10 Hepatitis C RNA Comment HIV 1&2 Antibody Non-Reactive 02/10/18 02/10/18 02/10/18 04:00 04:00 08:06 WBC RBC Hgb Hct MCV MCH MCHC RDW RDW Differential Plt Count MPV Immature Gran % (Auto) Neut % (Auto) Lymph % (Auto) Jay % (Auto) Eos % (Auto) Baso % (Auto) Absolute Neuts (auto) Absolute Lymphs (auto) Total Counted ESR APTT 29.3 Sodium 139 Potassium 3.5 Chloride 106 Carbon Dioxide 26.0 Anion Gap 7 BUN 13 Creatinine 0.76 Estim Creat Clear Calc 128.17 Est GFR (MDRD) Af Amer 137 Est GFR (MDRD) Non-Af 113 BUN/Creatinine Ratio 17.2 Glucose 114 H Lactic Acid Calcium 7.9 L Total Bilirubin 0.70 Direct Bilirubin 0.50 H AST 43 H ALT 28 Alkaline Phosphatase 158 H Troponin I C-React Prot Ext Range 62.30 H Total Protein 7.2 Albumin 1.9 L Globulin 5.3 H Albumin/Globulin Ratio 0.4 L Prealbumin 5.1 L Lipase Urine Color Urine Clarity Urine pH Ur Specific [place] Urine Protein Urine Glucose (UA) Urine Ketones Urine Occult Blood Urine Nitrite Urine Bilirubin Urine Urobilinogen Ur Leukocyte Esterase Urine RBC Urine WBC Ur Squamous Epith Cells Urine Bacteria Urine Mucus Vancomycin Trough 38.6 H Urine Opiates Screen Urine Methadone Screen Ur Barbiturates Screen Ur Phencyclidine Scrn Ur Amphetamines Screen U Methamphetamin-MDMA U Benzodiazepines Scrn Urine Cocaine Screen U Cannabinoids Screen Ur Drug Screen Comment Hep Bs Antigen Hep B Core Total Ab HCV RNA Quant (PCR) HCV RNA (PCR) log10 Hepatitis C RNA Comment HIV 1&2 Antibody 02/10/18 02/11/18 02/11/18 18:42 05:10 05:10 WBC 7.2 RBC 3.52 L Hgb 11.8 L Hct 34.1 L MCV 96.9 H MCH 33.5 H MCHC 34.6 RDW 11.4 L RDW Differential 39.2 Plt Count 225 MPV 9.9 Immature Gran % (Auto) Neut % (Auto) Lymph % (Auto) Jay % (Auto) Eos % (Auto) Baso % (Auto) Absolute Neuts (auto) Absolute Lymphs (auto) Total Counted ESR APTT Sodium 138 Potassium 3.5 Chloride 104 Carbon Dioxide 27.0 Anion Gap 7 BUN 10 Creatinine 0.69 L Estim Creat Clear Calc 141.17 Est GFR (MDRD) Af Amer 151 Est GFR (MDRD) Non-Af 125 BUN/Creatinine Ratio 14.4 Glucose 107 H Lactic Acid Calcium 7.8 L Total Bilirubin Direct Bilirubin AST ALT Alkaline Phosphatase Troponin I C-React Prot Ext Range Total Protein Albumin Globulin Albumin/Globulin Ratio Prealbumin Lipase Urine Color Urine Clarity Urine pH Ur Specific [place] Urine Protein Urine Glucose (UA) Urine Ketones Urine Occult Blood Urine Nitrite Urine Bilirubin Urine Urobilinogen Ur Leukocyte Esterase Urine RBC Urine WBC Ur Squamous Epith Cells Urine Bacteria Urine Mucus Vancomycin Trough 12.7 Urine Opiates Screen Urine Methadone Screen Ur Barbiturates Screen Ur Phencyclidine Scrn Ur Amphetamines Screen U Methamphetamin-MDMA U Benzodiazepines Scrn Urine Cocaine Screen U Cannabinoids Screen Ur Drug Screen Comment Hep Bs Antigen Hep B Core Total Ab HCV RNA Quant (PCR) HCV RNA (PCR) log10 Hepatitis C RNA Comment HIV 1&2 Antibody Clinical Impression(s) from Imaging Studies Chest CT 02/11/18 07:59 IMPRESSION: Multiple variable size right lung noncalcified pulmonary and subpleural nodules, cannot exclude neoplasm/metastasis. If clinically indicated, recommend PET/CT scan for further evaluation exclude neoplasm/metastasis. Left lung base posterior lateral consolidation changes and pleural effusion, most likely represents pneumonia but cannot exclude underlying neoplasm/metastasis. Recommend follow-up CT chest 2-4 weeks after treatment to demonstrate complete clearing. Numerous moderately enlarged lymph nodes, borderline adenopathy most likely reactive but cannot exclude metastatic etiology. Clinical correlation follow-up recommended. No large gross bulky adenopathy identified with above limitations. Mild descending thoracic aortic aneurysm 3.5 cm diameter. Bone tiny bone island versus a osseous metastasis left posterior lateral fourth rib. Again, PET/CT scan helpful to exclude osseous metastasis. Borderline anterior wedge compression fracture T11, appears old and unchanged since CT study 02/08/2018. Clinical correlation recommended. Limitations above. Electronically Signed: Con Quispe, at 11:47 EDT Tel , Service support , Brain CT 02/12/18 07:22 IMPRESSION: No acute intracranial abnormality. Electronically Signed: Jasmeet Graham, DO at 8:41 EDT Tel , Service support , Assessment/Plan All Active Problems Skin necrosis (Acute) Abscess of left leg (Acute) Sepsis (Acute) MRSA bacteremia (Acute) RECOMMENDATIONS: 1. Obtain PB 2. No PET scan 3. Probable need for 4-6 weeks of IV antibiotics 4. Repeat CT scan 2 weeks after cessation of antibiotics 5. Patient complete pulmonary function tests 6. Smoking cessation IMPRESSIONS: 1. Abnormal CT scan of the chest Clinical suspicion is for septic emboli leading to findings on CT scan of the chest. Patient does have a left-sided pleural effusion, but this does not appear to be big enough to leading to thoracentesis for confirmation. Bronchoscopy with BAL may not be successful given the peripheral location of most of the lesions. Patient does have a history of IV drug use, so right- sided endocarditis could be leading to current findings. Patient should have a PB for verification. Patient has had multiple MRSA positive cultures noted. Patient likely will require prolonged IV antibiotics. A repeat CT scan can be completed 2-4 weeks following cessation of antibiotics. Clinical suspicion for resolution of most of the findings. Would not recommend a PET scan as infection and malignancy will be hypermetabolic in lead to mediastinal lymphadenopathy. 2. Tobacco abuse Patient does have some emphysematous changes noted on CT scan of the chest. Patient would need complete PFT as an outpatient for quantification and clarification of lung function. Patient was advised for smoking cessation. 3. Hepatitis C/hypertension/history of heroin abuse/poor insight Complicates care, management, recovery and prognosis. Code Visit Inpatient E&M: 82101 Init Hosp L2
[2018-02-12] MEDS: oxyCODONE 5 MG Tablet 10 MG PO (13:07)
--- NOTE | 2018-02-12 14:22 | PCM.DC.SUM ---
Discharge Date and Diagnosis - Problem List Patient Problems: Active and Suspected Problems Sepsis (Acute) MRSA bacteremia (Acute) Date of Admission: 02/08/18 Date of Discharge: 02/12/18 - Primary Discharge Diagnosis Active and Suspected Problems #1 acute left medial leg less infected necrotic ulcer/surrounding cellulitis: Status post incision, drainage and excisional debridement, status post insertion of wound VAC. #2 MRSA bacteremia. #3 sepsis. #4 multiple right lung nodules/left lung base questionable nodule/lymphadenopathy: Suspected septic emboli. #5 probable left lower lobe pneumonia. - Secondary Discharge Diagnosis Chronic Problems Smoker (Chronic) Nonhealing ulcer of left lower leg (Chronic) nonhealing infected necrotic MRSA ulcer left medial leg Abdominal pain (Chronic) Hypertension (Chronic) Hepatitis C (Chronic) History of heroin abuse (Chronic) Hospital Course and Treatment Imaging Results: 02/12/18 07:22 CT Brain [Brain/Head without Contrast] [CT] Urgent 02/12/18 09:45 Echo Transesophageal (PB) [ECHO] Urgent Clinical Impression(s) from Imaging Studies Abdomen/Pelvis CT 02/08/18 07:30 IMPRESSION: Hepatosplenomegaly. Prior cholecystectomy. No acute intra-abdominal abnormality. Electronically Signed: Igor Welch MD at 8:18 EDT , Service support , ADDENDUM: 02/08/18 0828 Chest X-Ray 02/08/18 07:50 IMPRESSION: Normal x-ray examination of the chest. Electronically Signed: Igor Welch MD at 8:20 EDT , Service support , Lower Extremity CT 02/08/18 12:44 IMPRESSION: Skin thickening and subcutaneous edema. Small focus of subcutaneous air. No abscess. No osseous erosion. Electronically Signed: Igor Welch MD at 15:49 EDT , Service support , ADDENDUM: 02/09/18 1622 Abdomen/Pelvis CT 02/10/18 07:36 IMPRESSION: Stable right upper pole renal basilar atelectasis. Left lower lung infiltrate not excluded. No acute abdominal or pelvic findings. Electronically Signed: Jaime Dennis, DO at 20:41 EDT , Service support , Chest CT 02/11/18 07:59 IMPRESSION: Multiple variable size right lung noncalcified pulmonary and subpleural nodules, cannot exclude neoplasm/metastasis. If clinically indicated, recommend PET/CT scan for further evaluation exclude neoplasm/metastasis. Left lung base posterior lateral consolidation changes and pleural effusion, most likely represents pneumonia but cannot exclude underlying neoplasm/metastasis. Recommend follow-up CT chest 2-4 weeks after treatment to demonstrate complete clearing. Numerous moderately enlarged lymph nodes, borderline adenopathy most likely reactive but cannot exclude metastatic etiology. Clinical correlation follow-up recommended. No large gross bulky adenopathy identified with above limitations. Mild descending thoracic aortic aneurysm 3.5 cm diameter. Bone tiny bone island versus a osseous metastasis left posterior lateral fourth rib. Again, PET/CT scan helpful to exclude osseous metastasis. Borderline anterior wedge compression fracture T11, appears old and unchanged since CT study 02/08/2018. Clinical correlation recommended. Limitations above. Electronically Signed: Con Quispe, at 11:47 EDT Tel , Service support , Brain CT 02/12/18 07:22 IMPRESSION: No acute intracranial abnormality. Electronically Signed: Jasmeet Graham, at 8:41 EDT Tel , Service support , Dr. Davis, infectious disease. Dr. Kulkarni, plastic surgery. Dr. Tuttle, pulmonology. Operations: None Procedures: 2-D Echocardiogram, EKG, - - Incision, drainage and excisional debridement of necrotic infected left leg ulcer. Summary of Care Provided: This is a 57 years old male patient presented to the emergency department because of left-sided abdominal pain, found to have left lower leg nonhealing, infected gangrenous ulcer with sepsis and MRSA bacteremia. Also, he found to have multiple right lung nodules as well as probable left lung base includes which could be due to septic emboli. #1 acute left medial leg MRSA infected/necrotic ulcer/surrounding cellulitis: Status post incision, drainage and excisional debridement, status post incision of wound VAC. Treated with IV vancomycin and Rocephin. White blood cell count is back to normal. Wound culture revealed MRSA and E. coli. Blood culture revealed MRSA. Culture of the operative specimen showed staph aureus and gram-negative susan, final is pending at the time of transfer. Patient continued on vancomycin and Rocephin upon transfer to [facility]. #2 sepsis: Secondary to above. Treated with IV antibiotics as above. Cultures reviewed as above. Lactic acid was normal. Vital signs were stable. #3 MRSA bacteremia: Transferred on IV vancomycin. Likely source is the left lower extremity gangrenous ulcer/wound. Initial blood culture revealed MRSA. Repeat blood culture from February 09, 2019 also showed staph aureus, final is pending. Another repeat blood culture from February 10 and February 11, 2018 are pending as well. Transthoracic 2D echocardiogram revealed ejection fraction 65%, RVSP of 31, no vegetations. Because the CT scan chest revealed probable septic emboli, transesophageal echocardiogram indicated. According to the cardiovascular lab staff, PB machine and this hospital is broken. Patient transferred to [facility] for PB. #4 probable left lower lung pneumonia: This finding is seen on CT scan chest which could be on the septic emboli but pneumonia cannot be ruled out. Patient was already on vancomycin and Rocephin. CT chest revealed left lung base consolidation and pleural effusion. #5 multiple right lung pulmonary and subpleural nodules/left base questionable nodules/hilar lymphadenopathy/questionable left fourth rib bony lesion: All these are incidental findings on CT scan chest. Patient is a big time smoker, he smoked for 33 years. Malignancy is in the differential diagnosis. Because patient has bacteremia and also had a history of IV drug use, septic emboli also was in the differential diagnosis. At this time, those multiple pulmonary nodules are likely due to septic emboli, malignancy is less likely. Patient transferred to [facility] for PB and further management. #6 left sided abdominal pain: Unclear etiology. Could be due to the left base pneumonia. Both CT scan abdomen and pelvis with and without contrast performed and revealed no intra-abdominal or pelvic pathology that can explain this pain. #7 hypocalcemia: He received IV calcium gluconate. Most recent serum calcium 7.8, corrected calcium is normal. Patient transferred to [facility] stable condition, transferred for PB, transferred on IV vancomycin and Rocephin, status post wound VAC insertion to the left leg, patient will need follow-up with the wound care center when he returned back from [place], recommended follow-up with Dr. Kulkarni as outpatient in 2-3 weeks for probable skin graft. This note was generated with [employer] dictation software. It may contain incorrect words, spelling, and punctuation that were not noted in checking the note before signing. Home Medications: Medications to take at Discharge NK [NK] 02/08/18 Primary Care Physician: Devin Orozco III, MD [Primary Care Provider] - Disposition: Acute care Hospital Minutes spent on discharge:: 40 Patient Condition:: Stable Medical Necessity - Tobacco Use Smoking Status: Current every day smoker Tobacco Use: Cigarettes Meaningful Use Info Meaningful Use Diagnoses (Choose all that apply): None applicable Code Visit Inpatient E&M: 84698 Disch Hosp
--- NOTE | 2018-02-12 14:26 | DS.PCM_ITS ---
Discharge Date and Diagnosis - Problem List Patient Problems: Active and Suspected Problems Sepsis (Acute) MRSA bacteremia (Acute) Date of Admission: 02/08/18 Date of Discharge: 02/12/18 - Primary Discharge Diagnosis Active and Suspected Problems #1 acute left medial leg less infected necrotic ulcer/surrounding cellulitis: Status post incision, drainage and excisional debridement, status post insertion of wound VAC. #2 MRSA bacteremia. #3 sepsis. #4 multiple right lung nodules/left lung base questionable nodule/ lymphadenopathy: Suspected septic emboli. #5 probable left lower lobe pneumonia. - Secondary Discharge Diagnosis Chronic Problems Smoker (Chronic) Nonhealing ulcer of left lower leg (Chronic) nonhealing infected necrotic MRSA ulcer left medial leg Abdominal pain (Chronic) Hypertension (Chronic) Hepatitis C (Chronic) History of heroin abuse (Chronic) Hospital Course and Treatment Imaging Results: 02/12/18 07:22 CT Brain [Brain/Head without Contrast] [CT] Urgent 02/12/18 09:45 Echo Transesophageal (PB) [ECHO] Urgent Clinical Impression(s) from Imaging Studies Abdomen/Pelvis CT 02/08/18 07:30 IMPRESSION: Hepatosplenomegaly. Prior cholecystectomy. No acute intra-abdominal abnormality. Electronically Signed: Igor Welch MD at 8:18 EDT , Service support , ADDENDUM: 02/08/18 0828 Chest X-Ray 02/08/18 07:50 IMPRESSION: Normal x-ray examination of the chest. Electronically Signed: Igor Welch MD at 8:20 EDT , Service support , Lower Extremity CT 02/08/18 12:44 IMPRESSION: Skin thickening and subcutaneous edema. Small focus of subcutaneous air. No abscess. No osseous erosion. Electronically Signed: Igor Weclh MD at 15:49 EDT , Service support , ADDENDUM: 02/09/18 1622 Abdomen/Pelvis CT 02/10/18 07:36 IMPRESSION: Stable right upper pole renal basilar atelectasis. Left lower lung infiltrate not excluded. No acute abdominal or pelvic findings. Electronically Signed: Jaime Dennis, DO at 20:41 EDT , Service support , Chest CT 02/11/18 07:59 IMPRESSION: Multiple variable size right lung noncalcified pulmonary and subpleural nodules, cannot exclude neoplasm/metastasis. If clinically indicated, recommend PET/CT scan for further evaluation exclude neoplasm/metastasis. Left lung base posterior lateral consolidation changes and pleural effusion, most likely represents pneumonia but cannot exclude underlying neoplasm/metastasis. Recommend follow-up CT chest 2-4 weeks after treatment to demonstrate complete clearing. Numerous moderately enlarged lymph nodes, borderline adenopathy most likely reactive but cannot exclude metastatic etiology. Clinical correlation follow-up recommended. No large gross bulky adenopathy identified with above limitations. Mild descending thoracic aortic aneurysm 3.5 cm diameter. Bone tiny bone island versus a osseous metastasis left posterior lateral fourth rib. Again, PET/CT scan helpful to exclude osseous metastasis. Borderline anterior wedge compression fracture T11, appears old and unchanged since CT study 02/08/2018. Clinical correlation recommended. Limitations above. Electronically Signed: Con Quispe, at 11:47 EDT Tel , Service support , Brain CT 02/12/18 07:22 IMPRESSION: No acute intracranial abnormality. Electronically Signed: Jasmeet Graham, at 8:41 EDT Tel , Service support , Dr. Davis, infectious disease. Dr. Kulkarni, plastic surgery. Dr. Tuttle, pulmonology. Operations: None Procedures: 2-D Echocardiogram, EKG, - - Incision, drainage and excisional debridement of necrotic infected left leg ulcer. Summary of Care Provided: This is a 57 years old male patient presented to the emergency department because of left-sided abdominal pain, found to have left lower leg nonhealing, infected gangrenous ulcer with sepsis and MRSA bacteremia. Also, he found to have multiple right lung nodules as well as probable left lung base includes which could be due to septic emboli. #1 acute left medial leg MRSA infected/necrotic ulcer/surrounding cellulitis: Status post incision, drainage and excisional debridement, status post incision of wound VAC. Treated with IV vancomycin and Rocephin. White blood cell count is back to normal. Wound culture revealed MRSA and E. coli. Blood culture revealed MRSA. Culture of the operative specimen showed staph aureus and gram- negative susan, final is pending at the time of transfer. Patient continued on vancomycin and Rocephin upon transfer to [facility]. #2 sepsis: Secondary to above. Treated with IV antibiotics as above. Cultures reviewed as above. Lactic acid was normal. Vital signs were stable. #3 MRSA bacteremia: Transferred on IV vancomycin. Likely source is the left lower extremity gangrenous ulcer/wound. Initial blood culture revealed MRSA. Repeat blood culture from February 09, 2019 also showed staph aureus, final is pending. Another repeat blood culture from February 10 and February 11, 2018 are pending as well. Transthoracic 2D echocardiogram revealed ejection fraction 65% , RVSP of 31, no vegetations. Because the CT scan chest revealed probable septic emboli, transesophageal echocardiogram indicated. According to the cardiovascular lab staff, PB machine and this hospital is broken. Patient transferred to [facility] for PB. #4 probable left lower lung pneumonia: This finding is seen on CT scan chest which could be on the septic emboli but pneumonia cannot be ruled out. Patient was already on vancomycin and Rocephin. CT chest revealed left lung base consolidation and pleural effusion. #5 multiple right lung pulmonary and subpleural nodules/left base questionable nodules/hilar lymphadenopathy/questionable left fourth rib bony lesion: All these are incidental findings on CT scan chest. Patient is a big time smoker, he smoked for 33 years. Malignancy is in the differential diagnosis. Because patient has bacteremia and also had a history of IV drug use, septic emboli also was in the differential diagnosis. At this time, those multiple pulmonary nodules are likely due to septic emboli, malignancy is less likely. Patient transferred to [facility] for PB and further management. #6 left sided abdominal pain: Unclear etiology. Could be due to the left base pneumonia. Both CT scan abdomen and pelvis with and without contrast performed and revealed no intra-abdominal or pelvic pathology that can explain this pain. #7 hypocalcemia: He received IV calcium gluconate. Most recent serum calcium 7.8, corrected calcium is normal. Patient transferred to [facility] stable condition, transferred for PB, transferred on IV vancomycin and Rocephin, status post wound VAC insertion to the left leg, patient will need follow-up with the wound care center when he returned back from [place], recommended follow-up with Dr. Kulkarni as outpatient in 2-3 weeks for probable skin graft. This note was generated with [employer] dictation software. It may contain incorrect words, spelling, and punctuation that were not noted in checking the note before signing. Home Medications: Medications to take at Discharge NK [NK] 02/08/18 Primary Care Physician: Devin Orozco III, MD [Primary Care Provider] - Disposition: Acute care Hospital Minutes spent on discharge:: 40 Patient Condition:: Stable Medical Necessity - Tobacco Use Smoking Status: Current every day smoker Tobacco Use: Cigarettes Meaningful Use Info Meaningful Use Diagnoses (Choose all that apply): None applicable Code Visit Inpatient E&M: 95001 Disch Hosp
== END 2018-02-12 18:53 | disposition short-term general hospital (02) | DRG 364 ==
LOC: ED 07:35 → PCU 11:15
PROVIDERS: Anesthesiology; Internal Medicine Infectious Disease; Surgery; Admitting Provider Internal Medicine; Emergency Provider Emergency Medicine; Family Provider Family Medicine; PCP Family Medicine; Visit Provider Hospitalist
PROC: 0JBP0ZZ Excision of Left Lower Leg Subcutaneous Tissue and Fascia, Open Approach (ICD-10-PCS; principal; 2018-02-10 07:20)
DX: L03.116 Cellulitis of left lower limb (principal); B18.2 Chronic viral hepatitis C; I96 Gangrene, not elsewhere classified; L97.222 Non-pressure chronic ulcer of left calf with fat layer exposed; I26.90 Septic pulmonary embolism without acute cor pulmonale; J18.9 Pneumonia, unspecified organism; F11.10 Opioid abuse, uncomplicated; R91.8 Other nonspecific abnormal finding of lung field; F17.210 Nicotine dependence, cigarettes, uncomplicated; I10 Essential (primary) hypertension; R59.0 Localized enlarged lymph nodes; E83.51 Hypocalcemia; R10.9 Unspecified abdominal pain; B96.20 Unspecified Escherichia coli [E. coli] as the cause of diseases classified elsewhere; B95.62 Methicillin resistant Staphylococcus aureus infection as the cause of diseases classified elsewhere
CPT/HCPCS: 36415; 36569; 70450; 71045; 71250; 73700; 74176; 74177; 80048; 80053; 80076; 80202; 80307; 81001; 82248; 83605; 83690; 84134; 84484; 85025; 85027; 85652; 85730; 86140; 86703; 86704; 87040; 87070; 87075; 87077; 87086; 87088; 87102; 87149; 87186; 87205; 87206; 87340; 87522; 88304; 93005; 93306; 97162; 97166; 97802; 99284; J7030; J7040; J7050; Q9967; A4216; J0610; J0696; J2405